=== PATIENT | female | born 1950 | race Caucasian/White ===

== ENCOUNTER 2018-07-16 10:04 | Inpatient (IN) | payer MEDICARE ==
[2018-07-16] MEDS ORDERED: FUROSEMIDE 10 MG/ML 4 ML VIAL IV STA (10:42)
--- NOTE | 2018-07-16 10:54 | ED ---
General Adult HPI - General Chief complaint: Shortness of Breath Stated complaint: SOB, leg swelling Time Seen by Provider: 07/16/18 10:31 Source: patient, RN notes reviewed Mode of arrival: wheelchair Limitations: no limitations - History of Present Illness Initial comments: Patient is a pleasant 67-year-old female presenting to the emergency Department with cough and leg swelling. Patient has had cough and cold symptoms for the past couple of weeks. Patient states it started with sinus problems then went to her chest. Patient did have yellow sputum however cough is now more dry with occasional clear sputum. Patient does have some mild discomfort in her chest and back that is described as an ache. The back discomfort is somewhat similar to her previous heart problems. Patient has noticed leg swelling over the past week. Patient denies any calf pain. No nausea vomiting. No diaphoresis. - Related Data Home Medications Medication Instructions Recorded Confirmed Cholecalciferol [Vitamin D3 (25 1,000 unit PO DAILY 07/16/18 07/16/18 Mcg = 1000 Iu)] Magnesium 200 mg PO DAILY 07/16/18 07/16/18 Allergies Allergy/AdvReac Type Severity Reaction Status Date / Time No Known Allergies Allergy Unverified 07/16/18 10:35 Review of Systems ROS Statement: Those systems with pertinent positive or pertinent negative responses have been documented in the HPI. ROS Other: All systems not noted in ROS Statement are negative. Constitutional: Denies: fever Eyes: Denies: eye pain ENT: Reports: congestion. Denies: ear pain Respiratory: Reports: cough, dyspnea Cardiovascular: Reports: as per HPI, chest pain, edema Endocrine: Denies: fatigue Gastrointestinal: Denies: abdominal pain Genitourinary: Denies: dysuria Musculoskeletal: Reports: as per HPI Skin: Denies: rash Neurological: Denies: weakness Past Medical History Past Medical History: Coronary Artery Disease (CAD), Hyperlipidemia, Myocardial Infarction ([place]) History of Any Multi-Drug Resistant Organisms: None Reported Past Surgical History: Cholecystectomy Additional Past Surgical History / Comment(s): cataracts Past Psychological History: No Psychological Hx Reported Smoking Status: Current every day smoker Past Alcohol Use History: None Reported Past Drug Use History: None Reported General Exam Limitations: no limitations General appearance: alert, in no apparent distress Head exam: Present: atraumatic Eye exam: Present: normal appearance, PERRL ENT exam: Present: normal oropharynx Neck exam: Present: normal inspection Respiratory exam: Present: normal lung sounds bilaterally. Absent: chest wall tenderness Cardiovascular Exam: Present: tachycardia Expanded Peripheral pulses: 2+: Radial (R), Radial (L), Dorsalis Pedis (R), Dorsalis Pedis (L) GI/Abdominal exam: Present: soft. Absent: distended, tenderness Extremities exam: Present: pedal edema (+3 bilateral). Absent: calf tenderness Back exam: Present: normal inspection Neurological exam: Present: alert Psychiatric exam: Present: normal affect, normal mood Skin exam: Present: normal color Course Vital Signs 07/16/18 07/16/18 07/16/18 10:07 11:15 11:17 Temperature 97.5 F L Pulse Rate 118 H 138 H Respiratory 20 18 16 Rate Blood Pressure 188/125 153/100 O2 Sat by Pulse 97 94 L Oximetry - Reevaluation(s) Reevaluation #1: 07/16/18 11:15 air sampling and monitoring shows atrial flutter with a rate of between 120 and 140. Patient is placed on child monitor secondary to chest pain and dyspnea and to monitor heart rate. 07/16/18 11:15 Cardizem drip will be started. EKG Findings - EKG Comments: EKG Findings:: Atrial flutter with a rate of 146. QRS 88. QT 318. QTC 495. Normal axis. Normal QRS. No acute ST change. Medical Decision Making - Medical Decision Making Patient reevaluated and updated. Case was also discussed with Dr. Wagner, who will admit covering for Dr. Haq. Cardiology will be placed on consult. - Lab Data Result diagrams: 07/16/18 10:57 07/16/18 10:57 Lab Results 07/16/18 07/16/18 07/16/18 Range/Units 10:57 10:57 10:57 WBC 13.5 H (3.8-10.6) k/uL RBC 5.83 H (3.80-5.40) m/uL Hgb 12.2 (11.4-16.0) gm/dL Hct 40.3 (34.0-46.0) % MCV 69.2 L (80.0-100.0) fL MCH 20.9 L (25.0-35.0) pg MCHC 30.1 L (31.0-37.0) g/dL RDW 20.4 H (11.5-15.5) % Plt Count 466 H (150-450) k/uL Hypochromasia Marked Poikilocytosis Slight Anisocytosis Moderate Microcytosis Marked PT 11.4 (9.0-12.0) sec INR 1.1 (<1.2) APTT 20.7 L (22.0-30.0) sec D-Dimer 0.94 H (<0.60) mg/L FEU Sodium 141 (137-145) mmol/L Potassium 4.4 (3.5-5.1) mmol/L Chloride 108 H (98-107) mmol/L Carbon Dioxide 24 (22-30) mmol/L Anion Gap 9 mmol/L BUN 25 H (7-17) mg/dL Creatinine 0.96 (0.52-1.04) mg/dL Est GFR (CKD-EPI)AfAm 70 (>60 ml/min/1.73 sqM) Est GFR (CKD-EPI)NonAf 61 (>60 ml/min/1.73 sqM) Glucose 122 H (74-99) mg/dL Calcium 9.2 (8.4-10.2) mg/dL Total Bilirubin 1.7 H (0.2-1.3) mg/dL AST 73 H (14-36) U/L ALT 180 H (9-52) U/L Alkaline Phosphatase 229 H (38-126) U/L Creatine Kinase 58 (30-135) U/L Troponin I (0.000-0.034) ng/mL NT-Pro-B Natriuret Pep pg/mL Total Protein 5.9 L (6.3-8.2) g/dL Albumin 3.4 L (3.5-5.0) g/dL 07/16/18 07/16/18 Range/Units 10:57 10:57 WBC (3.8-10.6) k/uL RBC (3.80-5.40) m/uL Hgb (11.4-16.0) gm/dL Hct (34.0-46.0) % MCV (80.0-100.0) fL MCH (25.0-35.0) pg MCHC (31.0-37.0) g/dL RDW (11.5-15.5) % Plt Count (150-450) k/uL Hypochromasia Poikilocytosis Anisocytosis Microcytosis PT (9.0-12.0) sec INR (<1.2) APTT (22.0-30.0) sec D-Dimer (<0.60) mg/L FEU Sodium (137-145) mmol/L Potassium (3.5-5.1) mmol/L Chloride (98-107) mmol/L Carbon Dioxide (22-30) mmol/L Anion Gap mmol/L BUN (7-17) mg/dL Creatinine (0.52-1.04) mg/dL Est GFR (CKD-EPI)AfAm (>60 ml/min/1.73 sqM) Est GFR (CKD-EPI)NonAf (>60 ml/min/1.73 sqM) Glucose (74-99) mg/dL Calcium (8.4-10.2) mg/dL Total Bilirubin (0.2-1.3) mg/dL AST (14-36) U/L ALT (9-52) U/L Alkaline Phosphatase (38-126) U/L Creatine Kinase (30-135) U/L Troponin I 0.053 H* (0.000-0.034) ng/mL NT-Pro-B Natriuret Pep 5690 pg/mL Total Protein (6.3-8.2) g/dL Albumin (3.5-5.0) g/dL - Radiology Data Radiology results: report reviewed (Computed tomography scan of the chest is negative for pulmonary embolism. There is small amount of groundglass opacity could represent alveolitis, CHF or atypical pneumonia. Bilateral effusions.), image reviewed (Chest x-ray shows increased interstitial markings concerning for congestive heart failure) Critical Care Time Critical Care Time: Yes Total Critical Care Time: 34 Disposition Clinical Impression: Atrial flutter with rapid ventricular response, Congestive heart failure Disposition: ADMITTED IP TO THIS HOSP Condition: Serious Is patient prescribed a controlled substance at d/c from ED?: No Referrals: Astrid Metz MD [Primary Care Provider] - 1-2 days Decision Time: 12:27
[2018-07-16 11:23] LABS: Albumin 3.4 g/dL (3.5-5.0); Calcium 9.2 mg/dL (8.4-10.2); Potassium 4.4 mmol/L (3.5-5.1); Total Bilirubin 1.7 mg/dL (0.2-1.3); Total Protein 5.9 g/dL (6.3-8.2)
[2018-07-16 11:34] LABS: INR 1.1 (<1.2)
[2018-07-16 11:35] LABS: Prothrombin Time 11.4 sec (9.0-12.0)
--- NOTE | 2018-07-16 11:35 | XR ---
EXAMINATION TYPE: XR chest 2V DATE OF EXAM: 07/16/2018 HISTORY: difficulty breathing. REFERENCE: NONE. FINDINGS: The heart is enlarged. There is vascular congestion with subtle interstitial change. I harrison ot exclude small, bilateral effusions. IMPRESSION: FINDINGS MOST CONSISTENT WITH CONGESTIVE HEART FAILURE.
[2018-07-16 11:44] LABS: Anisocytosis Moderate; HCT 40.3 % (34.0-46.0); HGB 12.2 gm/dL (11.4-16.0); Hypochromasia Marked; MCH 20.9 pg (25.0-35.0); MCHC 30.1 g/dL (31.0-37.0); MCV 69.2 fL (80.0-100.0); Mean Platelet Volume 7.4; Microcytosis Marked; Platelet Count 466 k/uL (150-450); Poikilocytosis Slight; RBC 5.83 m/uL (3.80-5.40); RDW 20.4 % (11.5-15.5)
[2018-07-16 11:47] LABS: D-Dimer 0.94 mg/L FEU (<0.60); Partial Thromboplastin Time 20.7 sec (22.0-30.0)
--- NOTE | 2018-07-16 12:21 | CT ---
EXAMINATION TYPE: CT angio chest DATE OF EXAM: 07/16/2018 12:11 PM COMPARISON: None. HISTORY: Trouble breathing CT DLP: 474 mGycm Automated exposure control for dose reduction was used. CONTRAST: CTA scan of the thorax is performed with IV Contrast, patient injected with 100 mL of Isovue 370, pul monary embolism protocol. . FINDINGS: There are bilateral effusions, greater on the right than the left. There is some associated atelectasis. There is a small amount of groundglass opacity in the right middle lobe. This may repre sent ongoing alveolitis, congestive heart failure or atypical pneumonia. The heart is enlarged. There is no pericardial fluid. The aorta is nonenlarged. There is no evidence of pulmonary embolus. There are scattered lymph nodes in the aortopulmonary window, left hilum and mediastinum. The largest of these measures 14 mm. There is hypertrophic spondylosis within the spine. Visualized portions of the upper abdomen are unremarkable. IMPRESSION: 1. THIS EXAMINATION IS NEGATIVE FOR PULMONARY EMBOLUS. 2. BILATERAL PLEURAL EFFUSIONS, GREATER ON THE RIGHT THAN THE LEFT. 3. MINIMAL GROUNDGLASS OPACITY IN THE RIGHT MIDDLE LOBE. THE DIFFERENTIAL IS GIVEN ABOVE. 4. NONSPECIFIC MEDIASTINAL ADENOPATHY. 5. DEGENERATIVE CHANGES WITHIN THE SPINE.
[2018-07-16] MEDS ORDERED: ASPIRIN 325 MG TAB PO STA (12:28)
[2018-07-16] MEDS ORDERED: HEPARIN SODIUM,PORCINE 5,000 UNIT/ML 1 ML VIAL IV ONE (12:29)
[2018-07-16] MEDS: DILTIAZEM 125 MG in SODIUM CHLORIDE 0.9% 100 ML IV SCH (12:31)
[2018-07-16 12:44] LABS: Lymphocytes # (M) 2.14 k/uL (1.0-4.8); Monocytes # (M) 1.74 k/uL (0-1.0); Neutrophils # (M) 9.65 k/uL (1.3-7.7); Neutrophils % (M) 72 %; Nucleated Red Blood Cells 1 /100 WBC (0-0); Total Cells Counted 200; WBC 13.4 k/uL (3.8-10.6)
[2018-07-16 12:45] LABS: Polychromasia Present; Target Cells Present
[2018-07-16] MEDS: FUROSEMIDE 10 MG/ML 4 ML VIAL IV SCH ×2 (12:53→19:51)
[2018-07-16] MEDS: HEPARIN SOD,PORK IN 0.45% NACL 25,000 UNIT in 0.45% NACL 1 250ML.BAG IV SCH (13:06)
--- NOTE | 2018-07-16 14:53 | P.HPIM ---
History of Present Illness H&P Date: 07/16/18 Pinky Chandler is a 67-year-old female who presented to [facility] emergency room with a chief complaints of cough lower extremity swelling and worsening shortness of breath, she was evaluated in emergency room and was found to have atrial fibrillation with rapid ventricular response she was started on IV heparin and IV Cardizem drip and was admitted to telemetry floor, cardiology consultation was requested, also her presentation was compatible was acute congestive heart failure exacerbation with pulmonary venous congestion and small bilateral pleural effusions. D-dimer was elevated in the emergency room, computed tomography scan angiogram of the chest was done and was negative for pulmonary embolism, however it revealed evidence of groundglass opacity in the right middle lobe, and nonspecific mediastinal adenopathy pulmonary consultation was requested. Patient states that she has known history of coronary artery disease she had a myocardial infarction in 2009 at that time she underwent angioplasty was to stent placement she was taking medications regularly until 4-1/2 years ago when she decided not to take any medications any more, she has been smoking but she stated that she has been decreasing the amount of cigarettes she is smoking. Past Medical History Past Medical History: Coronary Artery Disease (CAD), Hyperlipidemia, Myocardial Infarction ([place]) History of Any Multi-Drug Resistant Organisms: None Reported Past Surgical History: Cholecystectomy Additional Past Surgical History / Comment(s): cataracts Past Psychological History: No Psychological Hx Reported Smoking Status: Current every day smoker Past Alcohol Use History: None Reported Past Drug Use History: None Reported Medications and Allergies Home Medications Medication Instructions Recorded Confirmed Type Cholecalciferol [Vitamin D3 (25 1,000 unit PO DAILY 07/16/18 07/16/18 History Mcg = 1000 Iu)] Magnesium 200 mg PO DAILY 07/16/18 07/16/18 History Allergies Allergy/AdvReac Type Severity Reaction Status Date / Time No Known Allergies Allergy Unverified 07/16/18 10:35 Physical Exam Vitals: Vital Signs Temp Pulse Pulse Resp BP BP Pulse Ox 07/16/18 13:30 97.9 F 136 H 18 159/101 95 07/16/18 11:17 138 H 16 153/100 94 L 07/16/18 11:15 18 07/16/18 10:07 97.5 F L 118 H 20 188/125 97 Intake and Output 07/15/18 07/16/18 07/16/18 22:59 06:59 14:59 Other: Weight 99.79 kg In general patient is alert and oriented 3 in no apparent distress HEENT head normocephalic and atraumatic Neck is supple no JVD no goiter no lymphadenopathy Chest exam reveals a scattered crackles in both lung rocha no wheezing Cardiac exam reveals irregular heart sounds S1 and S2 no gallops no murmurs Abdomen is soft nontender no organomegaly with normal bowel sounds Extremity exam reveals mild edema bilaterally no cyanosis or clubbing Neurological examination reveals no gross focal deficit Results CBC & Chem 7: 07/16/18 10:57 07/16/18 10:57 Labs: Abnormal Lab Results - Last 24 Hours (Table) 07/16/18 07/16/18 07/16/18 Range/Units 10:57 10:57 10:57 WBC 13.4 H (3.8-10.6) k/uL RBC 5.83 H (3.80-5.40) m/uL MCV 69.2 L (80.0-100.0) fL MCH 20.9 L (25.0-35.0) pg MCHC 30.1 L (31.0-37.0) g/dL RDW 20.4 H (11.5-15.5) % Plt Count 466 H (150-450) k/uL Neutrophils # (Manual) 9.65 H (1.3-7.7) k/uL Monocytes # (Manual) 1.74 H (0-1.0) k/uL Nucleated RBCs 1 H (0-0) /100 WBC APTT 20.7 L (22.0-30.0) sec D-Dimer 0.94 H (<0.60) mg/L FEU Chloride 108 H (98-107) mmol/L BUN 25 H (7-17) mg/dL Glucose 122 H (74-99) mg/dL Total Bilirubin 1.7 H (0.2-1.3) mg/dL AST 73 H (14-36) U/L ALT 180 H (9-52) U/L Alkaline Phosphatase 229 H (38-126) U/L Troponin I (0.000-0.034) ng/mL Total Protein 5.9 L (6.3-8.2) g/dL Albumin 3.4 L (3.5-5.0) g/dL 07/16/18 Range/Units 10:57 WBC (3.8-10.6) k/uL RBC (3.80-5.40) m/uL MCV (80.0-100.0) fL MCH (25.0-35.0) pg MCHC (31.0-37.0) g/dL RDW (11.5-15.5) % Plt Count (150-450) k/uL Neutrophils # (Manual) (1.3-7.7) k/uL Monocytes # (Manual) (0-1.0) k/uL Nucleated RBCs (0-0) /100 WBC APTT (22.0-30.0) sec D-Dimer (<0.60) mg/L FEU Chloride (98-107) mmol/L BUN (7-17) mg/dL Glucose (74-99) mg/dL Total Bilirubin (0.2-1.3) mg/dL AST (14-36) U/L ALT (9-52) U/L Alkaline Phosphatase (38-126) U/L Troponin I 0.053 H* (0.000-0.034) ng/mL Total Protein (6.3-8.2) g/dL Albumin (3.5-5.0) g/dL Assessment and Plan Plan: #1 acute congestive heart failure exacerbation #2 atrial fibrillation with rapid ventricular response #3 ground glass opacity in the right middle lobe was nonspecific mediastinal adenopathy #4 small bilateral pleural effusion #5 tobacco abuse patient counseled in length to quit during this admission #6 elevated d-dimer was negative CT scan angiogram of the chest for pulmonary embolism #7 leukocytosis white blood count 13.4 patient is not febrile no clear evidence of pneumonia on chest x-ray will check urine analysis to rule out any infectious process continue to monitor white blood count #8 mild elevation in troponin level will monitor #9 elevated liver enzymes including AST a LT alkaline phosphatase and elevated total bilirubin at 1.7 will check liver ultrasound #10 previous history of coronary artery disease, hyperlipidemia, myocardial infarction in 2009 patient had 2 stent placement at that time. She states that she was taking medication until about 4/2 years ago and then she decided not to take any more medications she was counseled in length in that regard.
--- NOTE | 2018-07-16 15:31 | US ---
EXAMINATION TYPE: US liver DATE OF EXAM: 07/16/2018 COMPARISON: CTA chest earlier today. CLINICAL HISTORY: Elevated liver enzymes. EXAM MEASUREMENTS: Liver Length: 16.9 cm Gallbladder Wall: Surgically absent CBD: 0.6 cm Right Kidney: 11.4 x 4.3 x 4.8 cm Pancreas: Obscured by bowel gas Liver: Heterogeneous. Measuring upper limits of normal Gallbladder: Surgically absent Evidence for sonographic Casanova's sign: No CBD: wnl Right Kidney: No hydronephrosis or masses seen Exam noted suboptimal due to patient's large body habitus. Pancreas is suboptimally seen on images sa yissel but appeared within normal limits on recent CT. Visualized liver is heterogeneous without intrahe patic ductal dilatation. Evaluation for focal masses is suboptimal due to the heterogeneity. Gallblad celestina is surgically absent. Limited images of right kidney show no gross hydronephrosis. IMPRESSION: Suboptimal study, heterogeneous hyperechoic appearance of liver could reflect product of diffuse fatty infiltration or underlying hepatocellular disease.
[2018-07-16] MEDS: NITROGLYCERIN OINT 1 INCH/GM PACKET TOPICAL SCH ×2 (15:38→18:22)
[2018-07-16 16:18] VITALS: BMI 35.5
[2018-07-16] MEDS: HEPARIN SODIUM,PORCINE 5,000 UNIT/ML 1 ML VIAL IV PRN (19:52)
[2018-07-17] MEDS: NITROGLYCERIN OINT 1 INCH/GM PACKET TOPICAL SCH ×5 (00:25→21:25)
[2018-07-17] MEDS: DILTIAZEM 125 MG in SODIUM CHLORIDE 0.9% 100 ML IV SCH (00:26)
[2018-07-17] MEDS: FUROSEMIDE 10 MG/ML 4 ML VIAL IV SCH ×3 (06:38→19:42)
[2018-07-17 07:29] LABS: Anisocytosis Moderate; Basophils % (A) 0 %; Eosinophils # (A) 0.1 k/uL (0-0.7); Eosinophils % (A) 1 %; HCT 45.9 % (34.0-46.0); HGB 13.3 gm/dL (11.4-16.0); Hypochromasia Marked; Lymphocytes # (A) 2.2 k/uL (1.0-4.8); Lymphocytes % (A) 19 %; MCH 20.3 pg (25.0-35.0); MCHC 28.9 g/dL (31.0-37.0); MCV 70.2 fL (80.0-100.0); Mean Platelet Volume 6.6; Microcytosis Marked; Monocytes # (A) 1.1 k/uL (0-1.0); Monocytes % (A) 9 %; Neutrophils % (A) 69 %; Platelet Count 461 k/uL (150-450); Poikilocytosis Slight; RBC 6.54 m/uL (3.80-5.40); RDW 20.5 % (11.5-15.5); WBC 11.6 k/uL (3.8-10.6)
[2018-07-17 07:43] LABS: INR 1.1 (<1.2); Partial Thromboplastin Time 38.5 sec (22.0-30.0); Prothrombin Time 11.3 sec (9.0-12.0)
[2018-07-17] MEDS: ASPIRIN 325 MG TAB PO SCH (08:31)
[2018-07-17] MEDS: HEPARIN SODIUM,PORCINE 5,000 UNIT/ML 1 ML VIAL IV PRN (08:32)
[2018-07-17] MEDS: HEPARIN SOD,PORK IN 0.45% NACL 25,000 UNIT in 0.45% NACL 1 250ML.BAG IV SCH (08:42)
[2018-07-17] MEDS ORDERED: DEXTROSE 5% IN WATER 100 ML with AMIODARONE 150 MG IV ONE (10:00)
[2018-07-17] MEDS ORDERED: AMIODARONE 360 MG in DEXTROSE 5% IN WATER 200 ML IV ONE ×2 (10:10)
[2018-07-17] MEDS: SPIRONOLACTONE 25 MG TAB PO SCH (10:33)
[2018-07-17] MEDS: SACUBITRIL/VALSARTAN 24 MG-26 MG TABLET PO SCH ×2 (10:34→19:41)
[2018-07-17] MEDS: APIXABAN 5 MG TAB PO SCH ×2 (10:34→19:41)
--- NOTE | 2018-07-17 12:06 | P.CNPUL ---
History of Present Illness Consult date: 07/17/18 Requesting physician: Marilee Wagner Reason for consult: dyspnea, abnormal CXR/CT Chief complaint: Dyspnea, lower extremity edema History of present illness: This is a 67-year-old with female patient, past medical history of coronary artery disease with previous stenting, myocardial infarction, hypertension, hyperlipidemia, current every day smoker, who presented to the hospital on 2018 for evaluation of dyspnea, cough, and increased extremity swelling. Patient had been having symptoms of upper respiratory infection, with sinus problems, cough and some yellow sputum production. Denied any fever or chills, has some mild discomfort in her chest and her back she described as an ache. Th e symptoms were similar to previous episode of myocardial infarction. Her swelling has in the bilateral lower extremities over the past week. Denied any calf pain, no nausea, vomiting or diarrhea, no diaphoresis. No fever or chills. Patient has no history of chronic lung problems, no COPD, no asthma, he is not on any inhalers or oxygen at home. She states she has not seen a physician in the last 4 years, after her , not even her heart doctor for follow-up. On arrival patient was placed on a plumbers and [employer] help[employer] which showed atrial flutter with a rate between 120 and 140, she was started on Cardizem drip, we were no acute ST changes. Chest x-ray showed increased interstitial markings concerning for congestive heart failure, lab work showed a mild leukocytosis, with white blood cell count of 13.4, hemoglobin of 12.2, d-dimer was mildly elevated at 0.94, troponins were elevated at 0.053, 0.053 and 0.056, her BNP was 5690. Electrolytes and renal profile were unremarkable. CT angios chest was negative for pulmonary embolus, it showed bilateral pleural effusions greater on the right than the left, and groundglass opacity in the right middle lobe was nonspecific mediastinal adenopathy. Patient was started on IV diuretics, 40 mg of Lasix every 8 hours, she is diuresing, breathing easier and lower extremity edema is improving. Review of Systems All systems: negative Constitutional: Denies chills, Denies fever Eyes: denies blurred vision, denies pain Ears, nose, mouth and throat: Denies headache, Denies sore throat Cardiovascular: Reports chest pain, Reports edema, Reports leg edema, Denies shortness of breath Respiratory: Reports dyspnea, Denies cough Gastrointestinal: Denies abdominal pain, Denies diarrhea, Denies nausea, Denies vomiting Genitourinary: Denies dysuria, Denies hematuria Musculoskeletal: Denies myalgias Integumentary: Denies pruritus, Denies rash Neurological: Denies numbness, Denies weakness Psychiatric: Denies anxiety, Denies depression Endocrine: Denies fatigue, Denies weight change Past Medical History Past Medical History: Coronary Artery Disease (CAD), Hyperlipidemia, Myocardial Infarction ([place]) Last Myocardial Infarction Date:: 2009 History of Any Multi-Drug Resistant Organisms: None Reported Past Surgical History: Cholecystectomy Additional Past Surgical History / Comment(s): cataracts Past Psychological History: No Psychological Hx Reported Smoking Status: Current every day smoker Past Alcohol Use History: None Reported Past Drug Use History: None Reported - Past Family History Mother Additional Family Medical History / Comment(s): parkinsons Father Family Medical History: Dementia, GERD/Reflux Medications and Allergies Home Medications Medication Instructions Recorded Confirmed Type Cholecalciferol [Vitamin D3 (25 1,000 unit PO DAILY 07/16/18 07/16/18 History Mcg = 1000 Iu)] Magnesium 200 mg PO DAILY 07/16/18 07/16/18 History Allergies Allergy/AdvReac Type Severity Reaction Status Date / Time No Known Allergies Allergy Unverified 07/16/18 10:35 Physical Exam Vitals: Vital Signs Temp Pulse Resp BP Pulse Ox 07/17/18 08:00 98.3 F 87 16 124/69 92 L 07/17/18 05:00 16 07/17/18 04:00 97.6 F 92 16 136/80 93 L 07/17/18 00:00 97.5 F L 80 18 135/87 92 L 07/16/18 19:45 98.3 F 101 H 18 146/87 92 L 07/16/18 16:15 96.5 F L 137 H 18 163/111 94 L 07/16/18 13:30 97.9 F 136 H 18 159/101 95 Intake and Output 07/16/18 07/17/18 07/17/18 22:59 06:59 14:59 Intake Total 66.36 119.167 168.091 Balance 66.36 119.167 168.091 Intake: Intake, IV Titration 66.36 119.167 168.091 Amount Diltiazem 125 mg In 119.167 Sodium Chloride 0.9% 100 ml @ 10 MG/HR 10 mls/hr IV .[id number] DANIEL Rx#: [id number] Heparin Sod,Pork in 0.45% 66.36 168.091 NaCl 25,000 unit In 0.45 % NaCl 1 250ml.bag @ 10 UNITS/KG/HR 9.979 mls/hr IV .Q24H DANIEL Rx#: [id number] Other: # Voids 1 1 Weight 99.79 kg 100.7 kg GENERAL EXAM: Alert, active, comfortable in no apparent distress. HEAD: Normocephalic/atraumatic. EYES: Normal reaction of pupils, equal size. Conjunctiva pink, sclera white. NOSE: Clear with pink turbinates. THROAT: No erythema or exudates. NECK: No masses, no JVD, no thyroid enlargement, no adenopathy. CHEST: No chest wall deformity. Symmetrical expansion. LUNGS: Equal air entry with basilar rales CVS: Regular rate and rhythm, normal S1 and S2, no gallops, no murmurs, no rubs ABDOMEN: Soft, nontender. No hepatosplenomegaly, normal bowel sounds, no guarding or rigidity. EXTREMITIES: No clubbing, no edema, no cyanosis, 2+ pulses and upper and lower extremities. MUSCULOSKELETAL: Muscle strength and tone normal. SPINE: No scoliosis or deformity SKIN: No rashes CENTRAL NERVOUS SYSTEM: Alert and oriented -3. No focal deficits, tone is normal in all 4 extremities. PSYCHIATRIC: Alert and oriented -3. Appropriate affect. Intact judgment and insight. Results - Laboratory Findings CBC and BMP: 07/17/18 06:53 07/16/18 10:57 PT/INR, D-dimer PT 11.3 sec (9.0-12.0) 07/17/18 06:53 INR 1.1 (<1.2) 07/17/18 06:53 D-Dimer 0.94 mg/L FEU (<0.60) H 07/16/18 10:57 Abnormal lab findings: Abnormal Labs 07/16/18 07/16/18 07/16/18 10:57 10:57 10:57 WBC 13.4 H RBC 5.83 H MCV 69.2 L MCH 20.9 L MCHC 30.1 L RDW 20.4 H Plt Count 466 H Neutrophils # Neutrophils # (Manual) 9.65 H Monocytes # Monocytes # (Manual) 1.74 H Nucleated RBCs 1 H APTT 20.7 L D-Dimer 0.94 H Chloride 108 H BUN 25 H Glucose 122 H Total Bilirubin 1.7 H AST 73 H ALT 180 H Alkaline Phosphatase 229 H Troponin I Total Protein 5.9 L Albumin 3.4 L 07/16/18 07/16/18 07/17/18 10:57 18:30 01:05 WBC RBC MCV MCH MCHC RDW Plt Count Neutrophils # Neutrophils # (Manual) Monocytes # Monocytes # (Manual) Nucleated RBCs APTT D-Dimer Chloride BUN Glucose Total Bilirubin AST ALT Alkaline Phosphatase Troponin I 0.053 H* 0.053 H* 0.056 H* Total Protein Albumin 07/17/18 07/17/18 07/17/18 01:05 06:53 06:53 WBC 11.6 H RBC 6.54 H MCV 70.2 L MCH 20.3 L MCHC 28.9 L RDW 20.5 H Plt Count 461 H Neutrophils # 8.0 H Neutrophils # (Manual) Monocytes # 1.1 H Monocytes # (Manual) Nucleated RBCs APTT 50.9 H 38.5 H D-Dimer Chloride BUN Glucose Total Bilirubin AST ALT Alkaline Phosphatase Troponin I Total Protein Albumin - Diagnostic Findings Chest x-ray: report reviewed, image reviewed CT scan - chest: report reviewed, image reviewed Assessment and Plan Plan: Assessment: #1. Acute exacerbation of congestive heart failure with an unknown ejection fraction #2. Elevated troponins, rule out non-ST elevated [place] #3. A flutter with rapid ventricular response #4. History of coronary artery disease with previous stenting #5. Hypertension #6. Hyperlipidemia #7. Previous myocardial infarction #8. Chronic and ongoing nicotine dependence Plan: We'll continue with IV diuretics, will add nebulized bronchodilators, continue with oral anticoagulation, heart rate is better controlled, hemodynamically stable, no complaints of chest pain today. No fever or chills. Monitor electrolytes and renal profile, and TM to follow and make further recommendations I performed a history & physical examination of the patient and discussed their management with my nurse practitioner, Amanda Guzman. I reviewed the nurse practitioner's note and agree with the documented findings and plan of care. Lung sounds are positive for basilar rales. The findings and the impression was discussed with the patient. I attest to the documentation by the nurse practitioner. Time with Patient: Greater than 30
--- NOTE | 2018-07-17 12:10 | P.PN ---
Subjective Progress Note Date: 07/17/18 Pinky Chandler is a 67-year-old female who presented to [facility] emergency room with a chief complaints of cough lower extremity swelling and worsening shortness of breath, she was evaluated in emergency room and was found to have atrial fibrillation with rapid ventricular response she was started on IV heparin and IV Cardizem drip and was admitted to telemetry floor, cardiology consultation was requested, also her presentation was compatible was acute congestive heart failure exacerbation with pulmonary venous congestion and small bilateral pleural effusions. D-dimer was elevated in the emergency room, computed tomography scan angiogram of the chest was done and was negative for pulmonary embolism, however it revealed evidence of groundglass opacity in the right middle lobe, and nonspecific mediastinal adenopathy pulmonary consultation was requested. Patient states that she has known history of coronary artery disease she had a myocardial infarction in 2009 at that time she underwent angioplasty was to stent placement she was taking medications regularly until 4-1/2 years ago when she decided not to take any medications any more, she has been smoking but she stated that she has been decreasing the amount of cigarettes she is smoking. On 07/17/2018 patient was seen and examined on the telemetry floor she is alert and oriented 3 she was evaluated by cardiology and her cardiac medication were adjusted, currently she is on amiodarone drip, Cardizem drip was discontinued, she was also started on Enyresto, Eliquis, and Aldactone. Clinically she is doing better she is alert and oriented 3 shortness of breath has improved she denies any chest pain no fever or chills no headache or dizziness no cough no nausea or vomiting no abdominal pain no diarrhea and no urinary symptoms. Objective - Vital Signs Vital signs: Vital Signs Temp 98.3 F 07/17/18 08:00 Pulse 87 07/17/18 08:00 Resp 16 07/17/18 08:00 BP 124/69 07/17/18 08:00 Pulse Ox 92 L 07/17/18 08:00 Intake & Output 07/16/18 07/17/18 07/17/18 18:59 06:59 18:59 Intake Total 185.527 168.091 Balance 185.527 168.091 Weight 99.79 kg 100.7 kg Intake: Intake, IV Titration 185.527 168.091 Amount Diltiazem 125 mg In 119.167 Sodium Chloride 0.9% 100 ml @ 10 MG/HR 10 mls/hr IV .[id number] D[facility]EL Rx#: [id number] Heparin Sod,Pork in 0.45% 66.36 168.091 NaCl 25,000 unit In 0.45 % NaCl 1 250ml.bag @ 10 UNITS/KG/HR 9.979 mls/hr IV .Q24H [facility] Rx#: [id number] Other: # Voids 2 1 - Exam In general patient is alert and oriented 3 in no apparent distress HEENT head normocephalic and atraumatic Neck is supple no JVD no goiter no lymphadenopathy Chest exam reveals a scattered crackles in both lung rocha no wheezing Cardiac exam reveals irregular heart sounds S1 and S2 no gallops no murmurs Abdomen is soft nontender no organomegaly with normal bowel sounds Extremity exam reveals mild edema bilaterally no cyanosis or clubbing Neurological examination reveals no gross focal deficit - Labs CBC & Chem 7: 07/17/18 06:53 07/16/18 10:57 Labs: Abnormal Lab Results - Last 24 Hours (Table) 07/16/18 07/16/18 07/17/18 Range/Units 10:57 18:30 01:05 WBC 13.4 H (3.8-10.6) k/uL RBC (3.80-5.40) m/uL MCV (80.0-100.0) fL MCH (25.0-35.0) pg MCHC (31.0-37.0) g/dL RDW (11.5-15.5) % Plt Count (150-450) k/uL Neutrophils # (1.3-7.7) k/uL Neutrophils # (Manual) 9.65 H (1.3-7.7) k/uL Monocytes # (0-1.0) k/uL Monocytes # (Manual) 1.74 H (0-1.0) k/uL Nucleated RBCs 1 H (0-0) /100 WBC APTT (22.0-30.0) sec Troponin I 0.053 H* 0.056 H* (0.000-0.034) ng/mL 07/17/18 07/17/18 07/17/18 Range/Units 01:05 06:53 06:53 WBC 11.6 H (3.8-10.6) k/uL RBC 6.54 H (3.80-5.40) m/uL MCV 70.2 L (80.0-100.0) fL MCH 20.3 L (25.0-35.0) pg MCHC 28.9 L (31.0-37.0) g/dL RDW 20.5 H (11.5-15.5) % Plt Count 461 H (150-450) k/uL Neutrophils # 8.0 H (1.3-7.7) k/uL Neutrophils # (Manual) (1.3-7.7) k/uL Monocytes # 1.1 H (0-1.0) k/uL Monocytes # (Manual) (0-1.0) k/uL Nucleated RBCs (0-0) /100 WBC APTT 50.9 H 38.5 H (22.0-30.0) sec Troponin I (0.000-0.034) ng/mL Assessment and Plan Plan: #1 acute congestive heart failure exacerbation, today patient was evaluated by cardiology she was started on Entresto, amiodarone drip, Eliquis and Aldactone #2 atrial fibrillation with rapid ventricular response, started on amiodarone drip, off Cardizem drip at this time #3 ground glass opacity in the right middle lobe was nonspecific mediastinal adenopathy, pulmonary consultation was requested #4 small bilateral pleural effusion #5 tobacco abuse patient counseled in length to quit during this admission #6 elevated d-dimer was negative CT scan angiogram of the chest for pulmonary embolism #7 leukocytosis white blood count 13.4 patient is not febrile no clear evidence of pneumonia on chest x-ray will check urine analysis to rule out any infectious process continue to monitor white blood count #8 mild elevation in troponin level will monitor #9 elevated liver enzymes including AST a LT alkaline phosphatase and elevated total bilirubin at 1.7 will check liver ultrasound #10 previous history of coronary artery disease, hyperlipidemia, myocardial infarction in 2009 patient had 2 stent placement at that time. She states that she was taking medication until about 4/2 years ago and then she decided not to take any more medications she was counseled in length in that regard.
[2018-07-17] MEDS: IPRATROPIUM-ALBUTEROL 3 ML NEB INHALATION SCH ×3 (14:06→21:03)
[2018-07-17] MEDS: AMIODARONE 300 MG in DEXTROSE 5% IN WATER 250 ML IV SCH ×2 (18:31)
--- NOTE | 2018-07-17 19:42 | CONS ---
CONSULTATION Mrs. Chandler is a 67-year-old female who is seen for cardiac evaluation. The patient's emergency medical records reviewed. This patient has a known history of coronary artery disease and with a prior history of myocardial infarction and stent placement probably in 2009. The patient has not been following any doctor for several years and she has not been taking any medications. The patient gives a history that she has been having some cough with yellowish sputum and difficulty in breathing. She has a history suggestive of orthopnea and PND, as well as leg swelling. Patient denies any chest pain. The patient can walk only short distances. HOME MEDICATIONS: Include vitamin D3 and Magnesium. PAST MEDICAL HISTORY: Includes history of prior myocardial infarction with stent placement, cholecystectomy. SOCIAL HISTORY: Patient currently is an everyday smoker. The patient does not drink alcohol. PHYSICAL EXAMINATION: Physical examination is at present reveals a 67-year-old female who is sitting comfortably in the chair without any respiratory distress. The patient's blood pressure in the emergency room was elevated to 188/125. Blood pressure now is 150/100 mmHg, heart rate is 120 per minute. HEENT examination is negative. NECK is supple. There is increase in jugular venous pressure. Both the carotid pulses are felt. There is no bruit. Chest is symmetrical. Heart the PMI is not felt. First and second heart sounds are heard. Jugular venous pressure is difficult to assess. Lungs reveal bilateral scattered wheezes and bilateral basilar rales. Abdomen is soft. Extremities: There is 2+ pedal edema. EKG shows evidence of atrial fibrillation and flutter, with recurrent left ventricular response. Chest x-ray is suggestive of congestive cardiac failure. Chest CTA did not show any pulmonary embolism. The patient's hemoglobin is 13.3, PTT is 38.5. Electrolytes are normal. Creatinine is 0.96. Three sets of troponins are 0.053, 0.053 and 0.056. The patient's proBNP level is 5690. FINAL IMPRESSION: 1. This patient is admitted with acute congestive cardiac failure. 2. The patient is in atrial flutter fibrillation with a moderately rapid ventricular response. 3. Prior history of myocardial infarction with stent placement. The patient's echocardiogram reveals severely impaired left ventricular systolic function with ejection fraction of 25-30 percent. RECOMMENDATIONS: We will continue the patient on IV Lasix. The Cardizem will be discontinued. We will start the patient on amiodarone. Heparin is discontinued. We will start the patient on Eliquis 5 mg b.i.d. and the patient will be also started on Entresto 24/26 mg b.i.d. as the blood pressure permits, we will beta blockers tomorrow. The patient is educated regarding taking medications. After the patient's condition improves, she may need a repeat catheterization to rule out any significant progression in the pulmonary artery disease as there is significant impairment in the patient's left ventricular systolic function. Thank you for this consultation. MMALBINL / IJN: [id number] /
[2018-07-17] MEDS: BUDESONIDE 1 MG/2 ML NEBU INHALATION SCH (21:03)
[2018-07-18] MEDS: AMIODARONE 300 MG in DEXTROSE 5% IN WATER 250 ML IV SCH ×2 (02:26)
[2018-07-18] MEDS: FUROSEMIDE 10 MG/ML 4 ML VIAL IV SCH ×2 (04:49→11:50)
[2018-07-18 06:44] LABS: Anisocytosis Moderate; Basophils % (A) 0 %; Eosinophils # (A) 0.1 k/uL (0-0.7); Eosinophils % (A) 1 %; HCT 44.3 % (34.0-46.0); HGB 12.8 gm/dL (11.4-16.0); Hypochromasia Marked; Lymphocytes # (A) 1.9 k/uL (1.0-4.8); Lymphocytes % (A) 19 %; MCH 20.1 pg (25.0-35.0); MCHC 28.8 g/dL (31.0-37.0); MCV 69.7 fL (80.0-100.0); Mean Platelet Volume 6.1; Microcytosis Marked; Monocytes # (A) 0.9 k/uL (0-1.0); Monocytes % (A) 10 %; Neutrophils # (A) 6.7 k/uL (1.3-7.7); Neutrophils % (A) 68 %; Platelet Count 451 k/uL (150-450); Poikilocytosis Slight; RBC 6.35 m/uL (3.80-5.40); RDW 20.1 % (11.5-15.5); WBC 9.8 k/uL (3.8-10.6)
[2018-07-18 06:57] LABS: Albumin 3.7 g/dL (3.5-5.0); INR 1.1 (<1.2); Potassium 4.2 mmol/L (3.5-5.1); Prothrombin Time 11.3 sec (9.0-12.0); Total Bilirubin 1.3 mg/dL (0.2-1.3); Total Protein 6.3 g/dL (6.3-8.2)
[2018-07-18] MEDS: BUDESONIDE 1 MG/2 ML NEBU INHALATION SCH (08:51)
[2018-07-18] MEDS: IPRATROPIUM-ALBUTEROL 3 ML NEB INHALATION SCH ×3 (08:51→15:31)
[2018-07-18 08:58] LABS: Glucose,Whole Blood 120 mg/dL (75-99)
--- NOTE | 2018-07-18 09:34 | CT ---
EXAMINATION TYPE: CT brain wo con DATE OF EXAM: 07/18/2018 COMPARISON: None HISTORY: New onset of slurred speech CT DLP: 2342 mGycm Automated exposure control for dose reduction was used. FINDINGS: [id number]-[id number] generalized degenerative change. Nonspecific low-attenuation the white matter most l ikely related to remote microvascular ischemia. No midline shift or mass effect. Changes of chronic s inusitis noted. Calvarium intact. Tiny hypodensities within the basal ganglia bilaterally may represe nt remote lacunar infarctions rather than Virchow-Dexter spaces. Correlate clinically. No acute hemorrhage. IMPRESSION: DEGENERATIVE AND NONSPECIFIC WHITE MATTER CHANGES. IF THERE IS CONCERN FOR ACUTE ISCHEMIA CORRELATE W ITH MRI CLINICALLY WARRANTED.
[2018-07-18 09:45] LABS: Iron Saturation 16.86 (12.00-45.00)
[2018-07-18] MEDS: NITROGLYCERIN OINT 1 INCH/GM PACKET TOPICAL SCH ×3 (10:01→15:14)
[2018-07-18] MEDS: SACUBITRIL/VALSARTAN 24 MG-26 MG TABLET PO SCH (10:04)
[2018-07-18] MEDS: APIXABAN 5 MG TAB PO SCH (10:04)
[2018-07-18] MEDS: ASPIRIN 325 MG TAB PO SCH (10:04)
[2018-07-18] MEDS: SPIRONOLACTONE 25 MG TAB PO SCH (10:04)
[2018-07-18 10:19] LABS: Anisocytosis Moderate; Basophils % (A) 0 %; Eosinophils # (A) 0.2 k/uL (0-0.7); Eosinophils % (A) 1 %; HCT 43.7 % (34.0-46.0); HGB 12.8 gm/dL (11.4-16.0); Hypochromasia Marked; Lymphocytes # (A) 1.8 k/uL (1.0-4.8); Lymphocytes % (A) 15 %; MCH 20.4 pg (25.0-35.0); MCHC 29.3 g/dL (31.0-37.0); MCV 69.7 fL (80.0-100.0); Mean Platelet Volume 7.1; Microcytosis Marked; Monocytes # (A) 1.2 k/uL (0-1.0); Monocytes % (A) 10 %; Neutrophils # (A) 8.9 k/uL (1.3-7.7); Neutrophils % (A) 73 %; Platelet Count 480 k/uL (150-450); Poikilocytosis Slight; RBC 6.27 m/uL (3.80-5.40); RDW 20.7 % (11.5-15.5); WBC 12.2 k/uL (3.8-10.6)
[2018-07-18 10:35] LABS: Albumin 3.7 g/dL (3.5-5.0); Calcium 9.4 mg/dL (8.4-10.2); Potassium 3.4 mmol/L (3.5-5.1); Total Bilirubin 1.2 mg/dL (0.2-1.3); Total Protein 6.2 g/dL (6.3-8.2)
[2018-07-18 10:45] LABS: Prothrombin Time 10.9 sec (9.0-12.0)
[2018-07-18] MEDS ORDERED: ACETAMINOPHEN TAB 325 MG TAB PO PRN (10:59)
[2018-07-18] MEDS ORDERED: ONDANSETRON 4 MG/2 ML VIAL IVP PRN (10:59)
--- NOTE | 2018-07-18 11:00 | P.PN ---
Subjective Progress Note Date: 07/18/18 Pinky Chandler is a 67-year-old female who presented to [facility] emergency room with a chief complaints of cough lower extremity swelling and worsening shortness of breath, she was evaluated in emergency room and was found to have atrial fibrillation with rapid ventricular response she was started on IV heparin and IV Cardizem drip and was admitted to telemetry floor, cardiology consultation was requested, also her presentation was compatible was acute congestive heart failure exacerbation with pulmonary venous congestion and small bilateral pleural effusions. D-dimer was elevated in the emergency room, computed tomography scan angiogram of the chest was done and was negative for pulmonary embolism, however it revealed evidence of groundglass opacity in the right middle lobe, and nonspecific mediastinal adenopathy pulmonary consultation was requested. Patient states that she has known history of coronary artery disease she had a myocardial infarction in 2009 at that time she underwent angioplasty was to stent placement she was taking medications regularly until 4-1/2 years ago when she decided not to take any medications any more, she has been smoking but she stated that she has been decreasing the amount of cigarettes she is smoking. On 07/17/2018 patient was seen and examined on the telemetry floor she is alert and oriented 3 she was evaluated by cardiology and her cardiac medication were adjusted, currently she is on amiodarone drip, Cardizem drip was discontinued, she was also started on Enyresto, Eliquis, and Aldactone. Clinically she is doing better she is alert and oriented 3 shortness of breath has improved she denies any chest pain no fever or chills no headache or dizziness no cough no nausea or vomiting no abdominal pain no diarrhea and no urinary symptoms. On 07/18/2018 per nursing staff patient was found to have slurred speech and l eft facial droop. Code stroke was initiated. Last known well time [address] AM. CTA and head CT completed. Head CT showing degenerative and nonspecific white matter changes. If there is concern for acute ischemia correlate with MRI as clinically warranted. Per neurosurgeon through code stroke protocol patient is not a candidate for TPA. MRI has been ordered. Patient remains alert and oriented 3. Patient does have slurred speech. Slightly weakened strength on left upper extremity. Left facial droop. Patient denies any chest pain. Patient denies any shortness of breath. Patient denies nausea vomiting or diarrhea. Patient denies any urinary burning or frequency. Patient remains on aspirin and eliquis for atrial fibrillation. Objective - Vital Signs Vital signs: Vital Signs Temp 98.2 F 07/18/18 08:00 Pulse 75 07/18/18 08:00 Resp 17 07/18/18 08:00 BP 145/72 07/18/18 08:00 Pulse Ox 95 07/18/18 08:56 Intake & Output 07/17/18 07/18/18 07/18/18 18:59 06:59 18:59 Intake Total 933.285 8745.917 Balance 314.557 8742.917 Weight 100.7 kg Intake: Intake, IV Titration 268.091 197.917 Amount Amiodarone 300 mg In 197.917 Dextrose 5% in Water 250 ml @ 0.5 MG/MIN 25 mls/hr IV .Q10H [facility] Rx#: [id number] Dextrose 5% in Water 100 100 ml @ 618 mls/hr IV .Q10M ONE with Amiodarone 150 mg Rx#:[id number] Heparin Sod,Pork in 0.45% 168.091 NaCl 25,000 unit In 0.45 % NaCl 1 250ml.bag @ 10 UNITS/KG/HR 9.979 mls/hr IV .Q24H [facility] Rx#: [id number] Oral 230 1450 Other: Voiding Method Toilet Toilet # Voids 2 3 - Exam In general patient is alert and oriented 3 in no apparent distress HEENT head normocephalic and atraumatic Neck is supple no JVD no goiter no lymphadenopathy Chest exam reveals a scattered crackles in both lung rocha no wheezing Cardiac exam reveals irregular heart sounds S1 and S2 no gallops no murmurs Abdomen is soft nontender no organomegaly with normal bowel sounds Extremity exam reveals mild edema bilaterally no cyanosis or clubbing Neurological examination reveals no gross focal deficit - Labs CBC & Chem 7: 07/18/18 10:03 07/18/18 10:03 Labs: Abnormal Lab Results - Last 24 Hours (Table) 07/18/18 07/18/18 07/18/18 Range/Units 06:21 06:21 08:56 WBC (3.8-10.6) k/uL RBC 6.35 H (3.80-5.40) m/uL MCV 69.7 L (80.0-100.0) fL MCH 20.1 L (25.0-35.0) pg MCHC 28.8 L (31.0-37.0) g/dL RDW 20.1 H (11.5-15.5) % Plt Count 451 H (150-450) k/uL Neutrophils # (1.3-7.7) k/uL Monocytes # (0-1.0) k/uL Potassium (3.5-5.1) mmol/L Carbon Dioxide 32 H (22-30) mmol/L BUN 26 H (7-17) mg/dL Glucose (74-99) mg/dL POC Glucose (mg/dL) 120 H (75-99) mg/dL AST 37 H (14-36) U/L ALT 113 H (9-52) U/L Alkaline Phosphatase 155 H (38-126) U/L Total Protein (6.3-8.2) g/dL 07/18/18 07/18/18 Range/Units 10:03 10:03 WBC 12.2 H (3.8-10.6) k/uL RBC 6.27 H (3.80-5.40) m/uL MCV 69.7 L (80.0-100.0) fL MCH 20.4 L (25.0-35.0) pg MCHC 29.3 L (31.0-37.0) g/dL RDW 20.7 H (11.5-15.5) % Plt Count 480 H (150-450) k/uL Neutrophils # 8.9 H (1.3-7.7) k/uL Monocytes # 1.2 H (0-1.0) k/uL Potassium 3.4 L (3.5-5.1) mmol/L Carbon Dioxide 36 H (22-30) mmol/L BUN 24 H (7-17) mg/dL Glucose 102 H (74-99) mg/dL POC Glucose (mg/dL) (75-99) mg/dL AST (14-36) U/L ALT 112 H (9-52) U/L Alkaline Phosphatase 169 H (38-126) U/L Total Protein 6.2 L (6.3-8.2) g/dL Assessment and Plan Assessment: #1 acute congestive heart failure exacerbation, today patient was evaluated by cardiology she was started on Entresto, amiodarone drip, Eliquis and Aldactone #2 atrial fibrillation with rapid ventricular response, started on amiodarone drip, off Cardizem drip at this time #3 slurred speech and left facial droop possibly related to CVA. Head CT completed showing degenerative nonspecific white matter changes. If there is concern for acute ischemia correlate with MRI as clinically warranted. Patient currently on eliquis and aspirin for atrial fibrillation. MRI of the head has been ordered. CTA pending #4 ground glass opacity in the right middle lobe was nonspecific mediastinal adenopathy, pulmonary consultation was requested #5 small bilateral pleural effusion #6 tobacco abuse patient counseled in length to quit during this admission #7 elevated d-dimer was negative CT scan angiogram of the chest for pulmonary embolism #8 leukocytosis white blood count 13.4 patient is not febrile no clear evidence of pneumonia on chest x-ray will check urine analysis to rule out any infectious process continue to monitor white blood count #9 mild elevation in troponin level will monitor #10 elevated liver enzymes including AST ALT alkaline phosphatase and elevated total bilirubin at 1.7 will check liver ultrasound #11 previous history of coronary artery disease, hyperlipidemia, myocardial infarction in 2009 patient had 2 stent placement at that time. She states that she was taking medication until about 4/2 years ago and then she decided not to take any more medications she was counseled in length in that regard. DVT prophylaxis eliquis. Prophylaxis Protonix I performed an examination of the patient and discussed their management with the Nurse Practitioner. I have reviewed the Nurse Practitioner's notes and agree with the documented findings and plan of care
[2018-07-18 11:02] LABS: Creatine Kinase MB 0.9 ng/mL (0.0-2.4); Troponin I 0.032 ng/mL (0.000-0.034)
--- NOTE | 2018-07-18 11:16 | CT ---
EXAMINATION TYPE: CODE STROKE: CTA head neck DATE OF EXAM: 07/18/2018 HISTORY: New onset of slurred speech COMPARISON: CT brain same date CT DLP: 567.5 mGycm. Automated Exposure Control for Dose Reduction was Utilized. TECHNIQUE: CTA scan of the neck and brain is performed with IV Contrast, patient injected with 50 mL of Isovue 370, axial images are obtained, coronal and sagittal reformatted images are reviewed. Thre e-D reconstructed images are created on an independent workstation and reviewed. FINDINGS: Carotid/Vascular Structures: Transverse aorta is patent. 3 super aortic branch vessels are present. V ertebral arteries are patent and codominant. Mild atheromatous changes are present in the carotid bif urcations. There is no evident embolus or dissection. Innominate artery, left and right subclavian ar teries are patent. Common carotid, internal and external carotid arteries are patent. Cerebral vascul ar calcifications present along the siphon. Other: There is a small right pleural effusion present with associated atelectasis. There are nonenla rged mediastinal nodes present, prevascular nodes also present. Coronary artery calcifications are no surendra. Mild prominence of pulmonary artery, consider pulmonary artery hypertension. Inflammatory change present in the right maxillary sinus. Nodular hypodense foci noted within the thyroid gland bilatera lly. Degenerative disc changes noted in the cervical spine, thoracic spondylosis present. IMPRESSION: No dissection or embolus. Atheromatous changes are present. Pleural effusion, correlate f or right maxillary sinusitis. Visualized above.
[2018-07-18 11:30] LABS: Partial Thromboplastin Time 21.2 sec (22.0-30.0)
--- NOTE | 2018-07-18 12:12 | CDI ---
Documentation Clarification Form Date: 07/18/2018 12:04:46 PM From: Alice SaraviaBoatengDEON, CCDS Admit Date: 07/16/2018 12:28:00 PM Patient Name: Pinky Chandler Visit Number: [id number] Discharge Date: ATTENTION: The Clinical Documentation Specialists (CDI) and [facility] Coding Staff appreciate your assistance in clarifying documentation. Please respond to the clarification below the line at the bottom and electronically sign. The CDI & [facility] Coding staff will review the response and follow-up if needed. Please note: Queries are made part of the Legal Health Record. If you have any questions, please contact the author of this message via ITS. Dr. Lydia Garcia: Per the cardiology consult: "This patient is admitted with acute congestive cardiac failure. The patient is in atrial flutter fibrillation with a moderately rapid ventricular response." History/Risk Factors: CAD with previous [place] & coronary stents, Hyperlipidemia. Clinical Indicators: Presented with cough, SOB & leg swelling. EKG/telemetry: R 146 Atrial flutter with variable AV block. Treatment: Telemetry, CHF clinical protocol, Tejeda cath, cardiology & pulmonary consults. IV Lasix, IV Cardizem drip, IV Heparin drip, Aspirin, IV Amiodarone, started on anticoagulant. In your professional opinion, can you please clarify the type of Atrial Fibrillation and/or Atrial Flutter, if known? Atrial Fibrillation: o Chronic/Permanent o Paroxysmal o Persistent o Other, please specify o Unable to determine Atrial Flutter: o Atypical o Typical o Type I o Type II o Other, please specify: o Unable to determine (Last Revision: May 2017) MTDD
--- NOTE | 2018-07-18 12:21 | CDI ---
Documentation Clarification Form Date: 07/18/2018 12:13:56 PM From: Alice SaraviaBoatengDEON, CCDS Admit Date: 07/16/2018 12:28:00 PM Patient Name: Pinky Chandler Visit Number: [id number] Discharge Date: ATTENTION: The Clinical Documentation Specialists (CDI) and [facility] Coding Staff appreciate your assistance in clarifying documentation. Please respond to the clarification below the line at the bottom and electronically sign. The CDI & [facility] Coding staff will review the response and follow-up if needed. Please note: Queries are made part of the Legal Health Record. If you have any questions, please contact the author of this message via ITS. Dr. Lydia Garcia: Per the cardiology consult: "Prior history of myocardial infarction with stent placement. The patient's echocardiogram reveals severely impaired left ventricular systolic function with ejection fraction of 25-30 percent." History/Risk Factors: CAD with previous [place] & stent, Hyperlipidemia. Smoker. Clinical Indicators: Presented with sob, cough & leg swelling. VS: WBC 13.4^, Pl Ct 466^, Neut 9.65^, D Dimer 0.94^, BUN 25^, Glucose 122^, Troponin 0.053^^, 0.053^^, 0.056^^: BNP 5690 Chest X Ray: congestive heart failure. CTA chest: Bilateral pleural effusions > right. Treatment: IV Lasix, IV Cardizem, IV Heparin drip, Nitropaste, smoking cessation. In your professional opinion, can you please clarify the acuity and type of CHF if known? Systolic Heart Failure: o Acute o Chronic o Acute on Chronic Diastolic Heart Failure: o Acute o Chronic o Acute on Chronic Systolic & Diastolic Heart Failure: o Acute o Chronic o Acute on Chronic Heart Failure Unable to Determine Other, please specify (Last Revision: May 2017) MTDD
[2018-07-18 13:58] VITALS: RESP 18; TEMP 97.3
--- NOTE | 2018-07-18 14:19 | P.PN ---
Subjective Progress Note Date: 07/18/18 This is a 67-year-old female seen in consultation yesterday by Dr. Garcia. Patient has a known history of coronary artery disease with prior stent placement in 2009 or so. Has not followed regularly with the physician in the office for quite some time. She also has history of hypertension, hyperlipidemi a, nicotine dependence, she initially presented to the hospital on this occasion with symptoms of shortness of breath with associated cough as well as lower extremity edema. Patient was found to have acute congestive heart failure, she was also noted to be in typical atrial flutter with a moderately rapid ventricular response and has since converted to normal sinus rhythm. Echocardiogram with Doppler study is been performed and is yet pending. This morning patient developed slurred speech and left-sided facial droop this morning and a code stroke was initiated. CTA and head CT were completed, head CT showed degenerative and nonspecific white matter changes, if there is concern for acute ischemia correlate with MRI as clinically warranted. Neurosurgeon felt that the patient was not a candidate for TPA and an MRI has been ordered. She remains alert and oriented 3, continues to have slurring of her speech and slight weakness in the left upper extremity, positive left-sided facial droop remains. In a normal sinus rhythm today, blood pressure 140/70 with a heart rate in the 70s, Objective - Vital Signs Vital signs: Vital Signs Temp 98.2 F 07/18/18 08:00 Pulse 75 07/18/18 08:00 Resp 17 07/18/18 08:00 BP 145/72 07/18/18 08:00 Pulse Ox 95 07/18/18 08:56 Intake & Output 07/17/18 07/18/18 07/18/18 18:59 06:59 18:59 Intake Total 018.373 5522.917 Balance 261.909 9532.917 Weight 100.7 kg Intake: Intake, IV Titration 268.091 197.917 Amount Amiodarone 300 mg In 197.917 Dextrose 5% in Water 250 ml @ 0.5 MG/MIN 25 mls/hr IV .Q10H [facility] Rx#: [id number] Dextrose 5% in Water 100 100 ml @ 618 mls/hr IV .Q10M ONE with Amiodarone 150 mg Rx#:[id number] Heparin Sod,Pork in 0.45% 168.091 NaCl 25,000 unit In 0.45 % NaCl 1 250ml.bag @ 10 UNITS/KG/HR 9.979 mls/hr IV .Q24H [facility] Rx#: [id number] Oral 230 1450 Other: Voiding Method Toilet Toilet # Voids 2 3 - Exam HEAD: Normocephalic/atraumatic. EYES: Normal reaction of pupils, equal size. Conjunctiva pink, sclera white. NOSE: Clear with pink turbinates. THROAT: No erythema or exudates. NECK: No masses, no JVD, no thyroid enlargement, no adenopathy. CHEST: No chest wall deformity. Symmetrical expansion. LUNGS: Equal air entry with basilar rales CVS: Regular rate and rhythm, normal S1 and S2, no gallops, no murmurs, no rubs ABDOMEN: Soft, nontender. No hepatosplenomegaly, normal bowel sounds, no guarding or rigidity. EXTREMITIES: No clubbing, no edema, no cyanosis, 2+ pulses and upper and lower extremities. MUSCULOSKELETAL: Muscle strength and tone normal. SPINE: No scoliosis or deformity SKIN: No rashes CENTRAL NERVOUS SYSTEM: Alert and oriented -3. Positive slurring of speech, left-sided facial droop and mild left-sided hand weakness PSYCHIATRIC: Alert and oriented -3. Appropriate affect. Intact judgment and insight. - Labs CBC & Chem 7: 07/18/18 10:03 07/18/18 10:03 Labs: Abnormal Lab Results - Last 24 Hours (Table) 07/18/18 07/18/18 07/18/18 Range/Units 06:21 06:21 08:56 WBC (3.8-10.6) k/uL RBC 6.35 H (3.80-5.40) m/uL MCV 69.7 L (80.0-100.0) fL MCH 20.1 L (25.0-35.0) pg MCHC 28.8 L (31.0-37.0) g/dL RDW 20.1 H (11.5-15.5) % Plt Count 451 H (150-450) k/uL Neutrophils # (1.3-7.7) k/uL Monocytes # (0-1.0) k/uL APTT (22.0-30.0) sec Potassium (3.5-5.1) mmol/L Carbon Dioxide 32 H (22-30) mmol/L BUN 26 H (7-17) mg/dL Glucose (74-99) mg/dL POC Glucose (mg/dL) 120 H (75-99) mg/dL AST 37 H (14-36) U/L ALT 113 H (9-52) U/L Alkaline Phosphatase 155 H (38-126) U/L Total Protein (6.3-8.2) g/dL 07/18/18 07/18/18 07/18/18 Range/Units 10:03 10:03 10:03 WBC 12.2 H (3.8-10.6) k/uL RBC 6.27 H (3.80-5.40) m/uL MCV 69.7 L (80.0-100.0) fL MCH 20.4 L (25.0-35.0) pg MCHC 29.3 L (31.0-37.0) g/dL RDW 20.7 H (11.5-15.5) % Plt Count 480 H (150-450) k/uL Neutrophils # 8.9 H (1.3-7.7) k/uL Monocytes # 1.2 H (0-1.0) k/uL APTT 21.2 L (22.0-30.0) sec Potassium 3.4 L (3.5-5.1) mmol/L Carbon Dioxide 36 H (22-30) mmol/L BUN 24 H (7-17) mg/dL Glucose 102 H (74-99) mg/dL POC Glucose (mg/dL) (75-99) mg/dL AST (14-36) U/L ALT 112 H (9-52) U/L Alkaline Phosphatase 169 H (38-126) U/L Total Protein 6.2 L (6.3-8.2) g/dL Assessment and Plan Plan: Assessment and plan #1 systolic congestive heart failure acute on chronic #2 paroxysmal atrial fibrillation currently in normal sinus rhythm. Paroxsysmanl atrial flutter, typical #3 slurring of speech with associated left-sided facial droop likely secondary to CVA. Head CT showing degenerative nonspecific white matter changes. MRI has been requested. #4 groundglass obesity in the right middle lobe nonspecific mediastinal adenopathy, pulmonary consultation requested. #5 nicotine dependence #6 mild abnormality in troponin, not consistent with acute coronary syndrome. #7 known history of coronary artery disease with prior myocardial infarction and stent placement #8 hyperlipidemia #9 hypertension Plan We will start the patient on oral amiodarone, continue anticoagulation with Eliquis. DNP note has been reviewed, I agree with a documented findings and plan of care. Patient was seen and examined.
--- NOTE | 2018-07-18 14:54 | P.PN ---
Subjective Progress Note Date: 07/18/18 Principal diagnosis: Mary marin RVR, shortness of breath, acute exacerbation of CHF This is a 67-year-old with female patient, past medical history of coronary artery disease with previous stenting, myocardial infarction, hypertension, hyperlipidemia, current every day smoker, who presented to the hospital on 2018 for evaluation of dyspnea, cough, and increased extremity swelling. Patient had been having symptoms of upper respiratory infection, with sinus problems, cough and some yellow sputum production. Denied any fever or chills, has some mild discomfort in her chest and her back she described as an ache. The symptoms were similar to previous episode of myocardial infarction. Her swelling has in the bilateral lower extremities over the past week. Denied any calf pain, no nausea, vomiting or diarrhea, no diaphoresis. No fever or chills. Patient has no history of chronic lung problems, no COPD, no asthma, he is not on any inhalers or oxygen at home. She states she has not seen a physician in the last 4 years, after her , not even her heart doctor for follow-up. On arrival patient was placed on a welding tester which showed atrial flutter with a rate between 120 and 140, she was started on Cardizem drip, we were no acute ST changes. Chest x-ray showed increased interstitial markings concerning for congestive heart failure, lab work showed a mild leukocytosis, with white blood cell count of 13.4, hemoglobin of 12.2, d-dimer was mildly elevated at 0.94, troponins were elevated at 0.053, 0.053 and 0.056, her BNP was 5690. Electrolytes and renal profile were unremarkable. CT angios chest was negative for pulmonary embolus, it showed bilateral pleural effusions greater on the right than the left, and groundglass opacity in the right middle lobe was nonspecific mediastinal adenopathy. Patient was started on IV diuretics, 40 mg of Lasix every 8 hours, she is diuresing, breathing easier and lower extremity edema is improving. On 07/18/2018 patient seen in follow-up on selective care unit, she is awake and alert, and there is obvious left-sided facial droop on today's exam, with nasolabial deviation on the left, and patient has a slurred speech, the onset was noted sometime this morning, and "stroke was activated showing degenerative and nonspecific white matter changes, concern for acute ischemia, angiography CT showed no dissection or embolus, atheromatous changes. Patient had converted to normal sinus rhythm, with a rate of 70s, echocardiogram with Doppler has been performed and the results are pending at this time. Today's labs have been reviewed showing white blood cell count of 12.2, hemoglobin of 12.8, INR is 1.0, serum sodium is 141, potassium is 3.4, chloride is 99, CO2 36, B1 is 24, creatinine 0.88, troponin was 0.032, he has been started on oral Eliquis, she is on oral amiodarone for rate control, is on IV Lasix of 40 mg every 8 hours. Apparently the neurosurgeon has recommended follow-up MRI, and patient was deemed not appropriate for TPA. We will consult neurology, and we'll initiate transfer to [facility] for possibility of neurointervention Objective - Vital Signs Vital signs: Vital Signs Temp 97.3 F L 07/18/18 12:00 Pulse 70 07/18/18 12:00 Resp 18 07/18/18 12:00 BP 158/84 07/18/18 12:00 Pulse Ox 93 L 07/18/18 12:00 Intake & Output 07/17/18 07/18/18 07/18/18 18:59 06:59 18:59 Intake Total 146.945 0646.917 Balance 681.583 6688.917 Weight 100.7 kg Intake: Intake, IV Titration 268.091 197.917 Amount Amiodarone 300 mg In 197.917 Dextrose 5% in Water 250 ml @ 0.5 MG/MIN 25 mls/hr IV .Q10H [facility] Rx#: [id number] Dextrose 5% in Water 100 100 ml @ 618 mls/hr IV .Q10M ONE with Amiodarone 150 mg Rx#:[id number] Heparin Sod,Pork in 0.45% 168.091 NaCl 25,000 unit In 0.45 % NaCl 1 250ml.bag @ 10 UNITS/KG/HR 9.979 mls/hr IV .Q24H [facility] Rx#: [id number] Oral 230 1450 Other: Voiding Method Toilet Toilet # Voids 2 3 3 - Exam GENERAL EXAM: Alert, active, comfortable in no apparent distress. Patient has obvious left-sided facial droop, with flattening of the nasolabial fold on the left, and slurred speech HEAD: Normocephalic/atraumatic. EYES: Normal reaction of pupils, equal size. Conjunctiva pink, sclera white. NOSE: Clear with pink turbinates. THROAT: No erythema or exudates. NECK: No masses, no JVD, no thyroid enlargement, no adenopathy. CHEST: No chest wall deformity. Symmetrical expansion. LUNGS: Equal air entry with basilar rales CVS: Regular rate and rhythm, normal S1 and S2, no gallops, no murmurs, no rubs ABDOMEN: Soft, nontender. No hepatosplenomegaly, normal bowel sounds, no guarding or rigidity. EXTREMITIES: No clubbing, no edema, no cyanosis, 2+ pulses and upper and lower extremities. MUSCULOSKELETAL: Muscle strength and tone normal. SPINE: No scoliosis or deformity SKIN: No rashes CENTRAL NERVOUS SYSTEM: Alert and oriented -3. Left-sided facial droop, slurred speech, tone is normal in all 4 extremities. PSYCHIATRIC: Alert and oriented -3. Appropriate affect. Intact judgment and insight. - Labs CBC & Chem 7: 07/18/18 10:03 07/18/18 10:03 Labs: Abnormal Lab Results - Last 24 Hours (Table) 07/18/18 07/18/18 07/18/18 Range/Units 06:21 06:21 08:56 WBC (3.8-10.6) k/uL RBC 6.35 H (3.80-5.40) m/uL MCV 69.7 L (80.0-100.0) fL MCH 20.1 L (25.0-35.0) pg MCHC 28.8 L (31.0-37.0) g/dL RDW 20.1 H (11.5-15.5) % Plt Count 451 H (150-450) k/uL Neutrophils # (1.3-7.7) k/uL Monocytes # (0-1.0) k/uL APTT (22.0-30.0) sec Potassium (3.5-5.1) mmol/L Carbon Dioxide 32 H (22-30) mmol/L BUN 26 H (7-17) mg/dL Glucose (74-99) mg/dL POC Glucose (mg/dL) 120 H (75-99) mg/dL AST 37 H (14-36) U/L ALT 113 H (9-52) U/L Alkaline Phosphatase 155 H (38-126) U/L Total Protein (6.3-8.2) g/dL 07/18/18 07/18/18 07/18/18 Range/Units 10:03 10:03 10:03 WBC 12.2 H (3.8-10.6) k/uL RBC 6.27 H (3.80-5.40) m/uL MCV 69.7 L (80.0-100.0) fL MCH 20.4 L (25.0-35.0) pg MCHC 29.3 L (31.0-37.0) g/dL RDW 20.7 H (11.5-15.5) % Plt Count 480 H (150-450) k/uL Neutrophils # 8.9 H (1.3-7.7) k/uL Monocytes # 1.2 H (0-1.0) k/uL APTT 21.2 L (22.0-30.0) sec Potassium 3.4 L (3.5-5.1) mmol/L Carbon Dioxide 36 H (22-30) mmol/L BUN 24 H (7-17) mg/dL Glucose 102 H (74-99) mg/dL POC Glucose (mg/dL) (75-99) mg/dL AST (14-36) U/L ALT 112 H (9-52) U/L Alkaline Phosphatase 169 H (38-126) U/L Total Protein 6.2 L (6.3-8.2) g/dL Assessment and Plan Plan: Assessment: #1. Acute exacerbation of congestive heart failure with an unknown ejection fraction #2. Elevated troponins, rule out non-ST elevated MN #3. A flutter with rapid ventricular response, likely in sinus rhythm #4. Acute onset of left-sided facial droop, and slurred speech, had CT showing degenerative changes, suspect acute CVA, patient was deemed not appropriate for TPA infusion #5. History of coronary artery disease with previous stenting #6. Hypertension #7. Hyperlipidemia #8. Previous myocardial infarction #9. Chronic and ongoing nicotine dependence Plan: Continue current treatment, will consult neurology, transfer to [facility] for possibility of neuro intervention was recommended, patient is on oral anticoagulation, she was deemed not appropriate for TPA infusion, she has ongoing left-sided facial droop, and slurred speech. Case was discussed with attending addition service, and transfer will be initiated I performed a history & physical examination of the patient and discussed their management with my nurse practitioner, Amanda Guzman. I reviewed the nurse practitioner's note and agree with the documented findings and plan of care. Lung sounds are positive for basilar rales. The findings and the impression was discussed with the patient. I attest to the documentation by the nurse practitioner. Time with Patient: Less than 30
--- NOTE | 2018-07-18 15:07 | P.DS ---
Providers Date of admission: 07/16/18 12:28 Expected date of discharge: 07/18/18 Attending physician: Marilee Wagner Consults: 07/16/18 12:29 Consult Physician Urgent Consulting Provider: Lydia Garcia Consult Reason/Comments: a flutter w rvr, chf Do you want consulting provider notified?: Yes 07/16/18 14:35 Consult Physician Routine Consulting Provider: Ca Hernandez Consult Reason/Comments: abnormal CT scan of the chest Do you want consulting provider notified?: Yes 07/18/18 14:13 Consult Physician Routine Consulting Provider: Poli Benjamin Consult Reason/Comments: left facial droop, slurred speech Do you want consulting provider notified?: Yes Primary care physician: Astrid Metz Hospital Course: Discharge diagnosis #1 acute congestive heart failure exacerbation, today patient was evaluated by cardiology she was started on Entresto, amiodarone drip, Eliquis and Aldactone #2 atrial fibrillation with rapid ventricular response, started on amiodarone drip, off Cardizem drip at this time #3 slurred speech and left facial droop possibly related to CVA. Head CT completed showing degenerative nonspecific white matter changes. If there is concern for acute ischemia correlate with MRI as clinically warranted. Patient currently on eliquis and aspirin for atrial fibrillation. MRI of the head has been ordered. Patient to be transferred to [facility] where patient to be seen by neurology services #4 ground glass opacity in the right middle lobe was nonspecific mediastinal adenopathy, pulmonary consultation was requested #5 small bilateral pleural effusion #6 tobacco abuse patient counseled in length to quit during this admission #7 elevated d-dimer was negative CT scan angiogram of the chest for pulmonary embolism #8 leukocytosis white blood count 13.4 patient is not febrile no clear evidence of pneumonia on chest x-ray will check urine analysis to rule out any infectious process continue to monitor white blood count #9 mild elevation in troponin level will monitor #10 elevated liver enzymes including AST ALT alkaline phosphatase and elevated total bilirubin at 1.7 will check liver ultrasound #11 previous history of coronary artery disease, hyperlipidemia, myocardial infarction in 2009 patient had 2 stent placement at that time. She states that she was taking medication until about 4/2 years ago and then she decided not to take any more medications she was counseled in length in that regard. Hospital Course Pinky Heidenrich is a 67-year-old female who presented to [facility] emergency room with a chief complaints of cough lower extremity swelling and worsening shortness of breath, she was evaluated in emergency room and was found to have atrial fibrillation with rapid ventricular response she was started on IV heparin and IV Cardizem drip and was admitted to telemetry floor, cardiology consultation was requested, also her presentation was compatible was acute congestive heart failure exacerbation with pulmonary venous congestion and small bilateral pleural effusions. D-dimer was elevated in the emergency room, computed tomography scan angiogram of the chest was done and was negative for pulmonary embolism, however it revealed evidence of groundglass opacity in the right middle lobe, and nonspecific mediastinal adenopathy pulmo nary consultation was requested. Patient states that she has known history of coronary artery disease she had a myocardial infarction in 2009 at that time she underwent angioplasty was to stent placement she was taking medications regularly until 4-1/2 years ago when she decided not to take any medications any more, she has been smoking but she stated that she has been decreasing the amount of cigarettes she is smoking. On 07/17/2018 patient was seen and examined on the telemetry floor she is alert and oriented 3 she was evaluated by cardiology and her cardiac medication were adjusted, currently she is on amiodarone drip, Cardizem drip was discontinued, she was also started on Enyresto, Eliquis, and Aldactone. Clinically she is doing better she is alert and oriented 3 shortness of breath has improved she denies any chest pain no fever or chills no headache or dizziness no cough no nausea or vomiting no abdominal pain no diarrhea and no urinary symptoms. On 07/18/2018 per nursing staff patient was found to have slurred speech and left facial droop. Code stroke was initiated. Last known well time 8 AM. CTA and head CT completed. Head CT showing degenerative and nonspecific white matter changes. If there is concern for acute ischemia correlate with MRI as clinically warranted. Per neurosurgeon through code stroke protocol patient is not a candidate for TPA. MRI has been ordered. Patient remains alert and oriented 3. Patient does have slurred speech. Slightly weakened strength on left upper extremity. Left facial droop. Patient denies any chest pain. Patient denies any shortness of breath. Patient denies nausea vomiting or diarrhea. Patient denies any urinary burning or frequency. Patient remains on aspirin and eliquis for atrial fibrillation. Discussed case with pulmonary services. Patient to be transferred to [facility] where neurology services are available. Patient remains with left facial droop and slurred speech. Discussed with patient and family. Agreeable to transfer I performed an examination of the patient and discussed their management with the Nurse Practitioner. I have reviewed the Nurse Practitioner's notes and agree with the documented findings and plan of care Patient Condition at Discharge: Stable Plan - Discharge Summary Discharge Rx Participant: Yes New Discharge Prescriptions: No Action Cholecalciferol [Vitamin D3 (25 Mcg = 1000 Iu)] 1,000 unit PO DAILY Magnesium 200 mg PO DAILY Discharge Medication List Cholecalciferol [Vitamin D3 (25 Mcg = 1000 Iu)] 1,000 unit PO DAILY 07/16/18 [History] Magnesium 200 mg PO DAILY 07/16/18 [History] Follow up Appointment(s)/Referral(s): Astrid Metz MD [Primary Care Provider] - 1-2 days Patient Instructions/Handouts: How to Stop Smoking (DC)
[2018-07-18] MEDS ORDERED: AMIODARONE 200 MG TAB PO SCH (16:00)
[2018-07-18] MEDS ORDERED: POTASSIUM CHLORIDE ER 20 MEQ TAB.ER PO SCH (16:00)
[2018-07-18 16:50] VITALS: BP 164/84; PULSE 78
--- NOTE | 2018-07-18 16:52 | MR ---
EXAMINATION TYPE: MR brain wo/w con DATE OF EXAM: 07/18/2018 COMPARISON: None HISTORY: New onset of slurred speech, stroke TECHNIQUE: Multiplanar, multisequence images of the brain and brainstem is performed without and with IV contras t, utilizing 10 mL intravenous Gadavist . FINDINGS: There is diffuse cerebral cortical atrophy. There is patchy increased signal on the T2 and FLAIR images in the periventricular white matter. There are coalescent areas that measure up to 1.5 c m. There is no mass effect nor midline shift. There is no sign of intracranial hemorrhage. There is a patchy 2 x 1.5 cm area of increased signal in the white matter right parietal lobe consistent with a cute infarct on the diffusion images. Brainstem appears fairly normal. Sella turcica is normal. Corpus callosum appears intact. Contrast im ages show no pathologic enhancement. There is mucosal thickening and fluid level right maxillary sinus. IMPRESSION: There is evidence of acute white matter infarct right parietal lobe. Cerebral atrophy. Patchy white matter signal changes in both cerebral hemispheres consistent with chronic small vessel ischemia. No cortical infarct.
[2018-07-19] MEDS ORDERED: PANTOPRAZOLE 40 MG TABLET PO SCH (07:30)
[2018-07-19] MEDS ORDERED: ASPIRIN 81 MG PO SCH (09:00)
== END 2018-07-18 17:59 | disposition short-term general hospital (02) | DRG 291 ==
LOC: EC 10:04 → 3SCARD 12:28
PROVIDERS: ADMIT Internal Medicine; ATTEND Internal Medicine
DX: I11.0 Hypertensive heart disease with heart failure (principal); I63.9 Cerebral infarction, unspecified; I48.3 Typical atrial flutter; I50.23 Acute on chronic systolic (congestive) heart failure; I48.0 Paroxysmal atrial fibrillation; R29.810 Facial weakness; R47.81 Slurred speech; R40.2142 Coma scale, eyes open, spontaneous, at arrival to emergency department; R40.2362 Coma scale, best motor response, obeys commands, at arrival to emergency department; R40.2252 Coma scale, best verbal response, oriented, at arrival to emergency department; R29.706 NIHSS score 6; R40.2144 Coma scale, eyes open, spontaneous, 24 hours or more after hospital admission; R40.2364 Coma scale, best motor response, obeys commands, 24 hours or more after hospital admission; R40.2254 Coma scale, best verbal response, oriented, 24 hours or more after hospital admission; R59.0 Localized enlarged lymph nodes; D72.829 Elevated white blood cell count, unspecified; I25.10 Atherosclerotic heart disease of native coronary artery without angina pectoris; E78.5 Hyperlipidemia, unspecified; I25.2 Old myocardial infarction; R74.8 Abnormal levels of other serum enzymes; R77.8 Other specified abnormalities of plasma proteins; F17.210 Nicotine dependence, cigarettes, uncomplicated; Z71.6 Tobacco abuse counseling; Z79.899 Other long term (current) drug therapy; Z90.49 Acquired absence of other specified parts of digestive tract; Z95.5 Presence of coronary angioplasty implant and graft; Z98.42 Cataract extraction status, left eye; Z98.41 Cataract extraction status, right eye; Z82.0 Family history of epilepsy and other diseases of the nervous system
CPT/HCPCS: 36415; 70450; 70496; 70498; 70553; 71046; 71275; 76705; 80053; 82550; 82553; 83540; 83550; 83880; 84484; 85025; 85379; 85610; 85730; 93005; 93306; 94640; 94760; 96365; 96368; 96375; 96376; 99291

== ENCOUNTER → 2018-09-08 | Outpatient (CLI) | payer MEDICARE ==
[2018-09-08 16:01] LABS: Anisocytosis Slight; HCT 40.9 % (34.0-46.0); HGB 12.3 gm/dL (11.4-16.0); Hypochromasia Marked; MCH 20.9 pg (25.0-35.0); MCHC 30.2 g/dL (31.0-37.0); MCV 69.2 fL (80.0-100.0); Mean Platelet Volume 7.4; Microcytosis Marked; Platelet Count 337 k/uL (150-450); RBC 5.91 m/uL (3.80-5.40); RDW 17.8 % (11.5-15.5)
[2018-09-09 00:32] LABS: African American GFR (CKD) 102.5 (60.0-200.0); Anion Gap 8.2 mmol/L (4.00-12.00); Carbon Dioxide 25.8 mmol/L (21.6-31.8); Potassium 4.9 mmol/L (3.5-5.5)
== END | disposition home or self-care (01) ==
LOC: LABWHC1 14:54
PROVIDERS: ATTEND Internal Medicine Cardiovascular Disease
DX: Z01.812 Encounter for preprocedural laboratory examination (principal); I48.0 Paroxysmal atrial fibrillation; I25.5 Ischemic cardiomyopathy
CPT/HCPCS: 36415; 80051; 82565; 84520; 85027

== ENCOUNTER 2018-09-20 10:59 | Day surgery (SDC) | payer MEDICARE ==
[~2018-09-20 10:59] MED LIST: ALPRAZolam 0.25 MG TAB PO PRN; ALPRAZolam 0.5 MG TAB PO PRN; ASPIRIN 325 MG TAB PO STA; ATORVASTATIN 80 MG TAB PO STA; NITROGLYCERIN SL TABS 0.4 MG TAB SUBLINGUAL PRN; SODIUM CHLORIDE 0.9% 1,000 ML in EMPTY BAG 1 BAG IV ONE
[2018-09-20] MEDS ORDERED: LIDOCAINE 1% INJ 10MG/ML (20 ML MDV) ONE (12:31)
[2018-09-20] MEDS ORDERED: fentaNYL (PF) 50 MCG/ML 2 ML AMP ONE (12:33)
[2018-09-20] MEDS ORDERED: fentaNYL (PF) 50 MCG/ML 2 ML AMP IVP ONE (12:36)
[2018-09-20] MEDS ORDERED: MIDAZOLAM (PF) 2 MG/2 ML VIAL IVP ONE (12:38)
[2018-09-20] MEDS ORDERED: NITROGLYCERIN SL TABS 0.4 MG TAB SUBLINGUAL ONE ×3 (12:54→13:35)
[2018-09-20] MEDS ORDERED: CLOPIDOGREL 75 MG TAB ONE (12:56)
[2018-09-20] MEDS ORDERED: CLOPIDOGREL 75 MG TAB PO ONE (13:00)
[2018-09-20] MEDS ORDERED: amLODIPine 5 MG TAB ONE (13:31)
[2018-09-20] MEDS ORDERED: amLODIPine 5 MG TAB PO ONE (13:36)
[2018-09-20] MEDS ORDERED: BIVALIRUDIN BOLUS 250 MG/50 ML IV ONE (13:38)
[2018-09-20] MEDS ORDERED: BIVALIRUDIN 250 MG in SODIUM CHLORIDE 0.9% 50 ML IV ONE (13:40)
[2018-09-20] MEDS ORDERED: IOPAMIDOL-370 125ML BTL INJ ONE (13:46)
[2018-09-20] MEDS: NITROGLYCERIN 1000MCG/10ML SYRINGE INTRACORON ONE ×2 (13:51→14:01)
[2018-09-20] MEDS ORDERED: hydrALAZINE HCL 20 MG/ML 1 ML VIAL ONE (14:05)
[2018-09-20] MEDS ORDERED: hydrALAZINE HCL 20 MG/ML 1 ML VIAL IV ONE (14:07)
[2018-09-20] MEDS ORDERED: IOPAMIDOL-370 100ML BTL INJ ONE (14:10)
[2018-09-20] MEDS ORDERED: ZOLPIDEM 5 MG TAB PO PRN (14:18)
[2018-09-20] MEDS ORDERED: RX INFO: IV CONTRAST WAS GIVEN 1 EACH MISC MISCELLANE PRN (14:18)
[2018-09-20] MEDS ORDERED: ATROPINE SULFATE 0.1 MG/ML 10ML SYRINGE IV PRN (14:18)
[2018-09-20] MEDS ORDERED: MAG HYDROX/AL HYDROX/SIMETH 30 ML CUP PO PRN (14:18)
--- NOTE | 2018-09-20 14:21 | CC ---
CARDIAC CATHETERIZATION REPORT Mrs. Chandler is a this is status post prior history of a stent to the circumflex coronary artery. The patient recently was admitted with atrial fibrillation, cardiomyopathy, congestive cardiac failure and subsequent the patient subsequently is stress test showed evidence of inferior lateral ischemia in view of that the patient was recommended to have a cardiac catheterization for definitive diagnosis procedure the right groin was prepped and draped in the usual manner and the skin was infiltrated with 2% Xylocaine. The right femoral artery was entered using Seldinger technique a #6- Filipino sheath was placed in. Selective coronary angiography was then performed in multiple projections and the left ventricular pressures were obtained. Patient tolerated the procedure well. Moderate sedation was used. Total sedation time is 20 minutes selective. CORONARY ANGIOGRAPHY: Left main coronary artery is normal and patent. LAD is a good caliber blood vessels is tortuous. . LEFT ANTERIOR DESCENDING CORONARY ARTERY: Mid LAD has a mild irregularity circumflex coronary artery is a good caliber blood vessel and there is a mild disease noted in the mid circumflex coronary artery. The right coronary artery is a good caliber blood vessel and the mid to distal right coronary artery is a long lesion with focal stenosis of 90%. Left ventricular end- diastolic pressure is 22 mmHg prior to angiography. No gradient is noted across the aortic valve. FINAL IMPRESSION: There isn't long lesion in mid to distal LAD with a focal stenosis of 90%. The proximal circumflex coronary artery has about 40% stenosis. Lad has a mild irregularity. RECOMMENDATIONS: We will review the film with Dr. Carroll Bonilla and consider stent to the RCA. MMODL / IJN: [id number] /
[2018-09-20] MEDS: CARVEDILOL 12.5 MG TAB PO SCH (17:25)
[2018-09-20] MEDS: SODIUM CHLORIDE 0.9% 1,000 ML IV SCH ×2 (17:26→20:30)
[2018-09-20] MEDS: FLUTICASONE 110 MCG INHALER INHALATION SCH (20:38)
[2018-09-20] MEDS ORDERED: ATORVASTATIN 80 MG TAB PO SCH (21:00)
[2018-09-21 07:02] LABS: Anisocytosis Slight; Basophils # (A) 0.1 k/uL (0-0.2); Basophils % (A) 1 %; Eosinophils # (A) 0.3 k/uL (0-0.7); Eosinophils % (A) 2 %; HCT 40.1 % (34.0-46.0); HGB 12.5 gm/dL (11.4-16.0); Hypochromasia Slight; Lymphocytes # (A) 1.5 k/uL (1.0-4.8); Lymphocytes % (A) 14 %; MCH 20.7 pg (25.0-35.0); MCV 66.7 fL (80.0-100.0); Mean Platelet Volume 6.3; Microcytosis Marked; Monocytes % (A) 9 %; Neutrophils # (A) 8.1 k/uL (1.3-7.7); Neutrophils % (A) 73 %; Platelet Count 295 k/uL (150-450); RBC 6.02 m/uL (3.80-5.40); RDW 16.2 % (11.5-15.5)
[2018-09-21] MEDS: CARVEDILOL 12.5 MG TAB PO SCH (07:07)
[2018-09-21 07:18] LABS: African American GFR (CKD) >90 (>60 ml/min/1.73 sqM); Anion Gap 8 mmol/L; Blood Urea Nitrogen 18 mg/dL (7-17); Calcium 9.3 mg/dL (8.4-10.2); Carbon Dioxide 25 mmol/L (22-30); Chloride 107 mmol/L (98-107); Glucose 92 mg/dL (74-99); Potassium 4.6 mmol/L (3.5-5.1); Sodium 140 mmol/L (137-145)
[2018-09-21] MEDS: FLUTICASONE 110 MCG INHALER INHALATION SCH (08:24)
[2018-09-21] MEDS ORDERED: CHOLECALCIFEROL 1,000 UNIT TAB PO SCH (09:00)
[2018-09-21] MEDS ORDERED: ASPIRIN 81 MG PO SCH (09:00)
[2018-09-21] MEDS ORDERED: SPIRONOLACTONE 25 MG TAB PO SCH (09:00)
[2018-09-21] MEDS ORDERED: BIOTIN PO SCH (09:00)
[2018-09-21] MEDS ORDERED: VITAMIN C PO SCH (09:00)
[2018-09-21] MEDS ORDERED: CLOPIDOGREL 75 MG TAB PO SCH (09:00)
[2018-09-21] MEDS ORDERED: MAGNESIUM OXIDE 400 MG TAB PO SCH (09:00)
[2018-09-21] MEDS ORDERED: APIXABAN 2.5 MG TABLET PO SCH (10:00)
[2018-09-21 11:29] VITALS: BMI 32.6
[2018-09-21 12:13] VITALS: BP 126/71; PULSE 71; RESP 17; TEMP 98
--- NOTE | 2018-09-21 16:23 | P.PN ---
Subjective Progress Note Date: 09/21/18 Discharge note This is a 68-year-old female who has prior history of a stent to the circumflex artery, was recently admitted to the hospital with atrial fibrillation, cardiomyopathy, congestive cardiac failure, and subsequently a stress test which showed evidence of inferior lateral ischemia, in view of that the patient was recommended to have a cardiac catheterization for definitive diagnosis. Cardiac catheterization was performed yesterday with a subsequent angioplasty and stenting of the right coronary artery. The patient was seen and examined this morning, denied any chest pain or difficulty in breathing. Lopressor 126/70 with a heart rate is 70, 95% on room air. White blood cell count 11.0, hemoglobin 12.5, platelet count 295. Sodium 140, potassium 4.6, albumin 18 and creatinine 0.6. Patient will be discharged home today, we will start Entresto and have the lead case manager check regarding coverage. Objective - Vital Signs Vital signs: Vital Signs Temp 98.0 F 09/21/18 08:00 Pulse 71 09/21/18 08:00 Resp 17 09/21/18 08:00 BP 126/71 09/21/18 08:00 Pulse Ox 95 09/21/18 08:00 Intake & Output 09/20/18 09/21/18 09/21/18 18:59 06:59 18:59 Intake Total 453.14 240 Output Total 1400 600 Balance -946.86 -360 Weight 94.6 kg 94.6 kg Intake: IV 333.14 Oral 120 240 Output: Urine 1400 600 Other: Voiding Method Toilet # Voids 1 - Exam PHYSICAL EXAMINATION: 68-year-old female in no acute distress at the time of my examination HEENT: [Head is atraumatic, normocephalic. Pupils equal, round. Neck is supple. There is no elevated jugular venous pressure.] HEART EXAMINATION: [Heart S1, S2 normal. PMI normal.] CHEST EXAMINATION:[ Lungs are clear to auscultation and precussion. No chest wall tenderness is noted on palpation or with deep breathing.] ABDOMEN: [ Soft, nontender. Bowel sounds are heard. No organomegaly noted]. EXTREMITIES:[ 2+ peripheral pulses with no evidence of peripheral edema and no calf tenderness noted]. Right groin soft, no evidence of any hematoma. NEUROLOGIC [patient is awake, alert and oriented -3.] . - Labs CBC & Chem 7: 08/07/19 06:05 09/21/18 06:05 Labs: Abnormal Lab Results - Last 24 Hours (Table) 09/21/18 09/21/18 Range/Units 06:05 06:05 WBC 11.0 H (3.8-10.6) k/uL RBC 6.02 H (3.80-5.40) m/uL MCV 66.7 L (80.0-100.0) fL MCH 20.7 L (25.0-35.0) pg RDW 16.2 H (11.5-15.5) % Neutrophils # 8.1 H (1.3-7.7) k/uL BUN 18 H (7-17) mg/dL Assessment and Plan Plan: Assessment and plan #1 status post angioplasty and stenting of the right coronary artery #2 hyperlipidemia #3 ischemic cardiomyopathy #4 paroxysmal atrial fibrillation #5 hypertension Plan Patient will be discharged home today on aspirin 81 mg daily, Plavix 75 mg daily, Eliquis 5 mg by mouth twice a day, after one month the aspirin will be discontinued. Lipitor 80 mg daily, Coreg 12-1/2 mg one tablet by mouth twice a day, Aldactone 25 mg daily,Entresto 24/26mg by mouth twice a day. Follow-up appointment in the office in one to 2 weeks.
--- NOTE | 2018-09-21 20:02 | CC ---
CARDIAC CATHETERIZATION REPORT DATE OF SERVICE: 09/20/2018 PROCEDURE: PTCA and stenting of mid RCA with 3 drug-eluting stents. PERFORMED BY: Dr. Carroll Bonilla. SEDATION: Moderate conscious sedation time was 37 minutes. Patient was administered Versed. Oxygen saturation, hemodynamics and EKG were monitored closely. CLINICAL INFORMATION: Mrs. Pinky Chandler is a 68-year-old lady with a history of CAD, previous circumflex PCI performed in 2010. Since then, she has had issues with heart failure and paroxysmal atrial fibrillation. She came into the hospital with symptoms of angina. After electively admitted by Dr. George Garcia. Cardiac cath revealed a tight 90% mid RCA lesion was following a very tortuous segment. This was a long area of disease. The circumflex had about a 35% narrowing with good flow. RCA was a dominant vessel. She was advised intervention that was performed expeditiously. PROCEDURE NOTE: The existing 6-[place] introducer in the right femoral artery was used to perform procedure. I used an All Right 3.5 guide catheter to cannulate the right coronary artery. The run-through wire was used to cross the lesion. Predilatation was performed with a 15 mm long 2.5 caliber NC Trek balloon. Subsequently a 3 stents were deployed. The 1st was at 3.25 caliber 15 mm stent in the midportion. Distally, there was a 3.0 caliber 8 mm stent proximally there with a 3.5 caliber 8 mm Xience stent. All of these were 3 drug-eluting stents. Excellent angiographic result was achieved. Patient had a significant inferior ST elevation, but no significant chest discomfort. Excellent angiographic result without complication was achieved. Patient received Angiomax bolus and infusion as per protocol. He also received 600 mg of Plavix. Excellent angiographic result without complication was achieved. The sheath was taken out and Angio-Seal device used to secure hemostasis and she was sent to the room in stable condition. MMODL / IJN: [id number] /
== END 2018-09-21 12:10 | disposition home or self-care (01) ==
LOC: CATHCVL 10:59 → 3SCARD 14:18 → CATHCVL 09-21 12:10
PROVIDERS: ATTEND Internal Medicine Cardiovascular Disease
DX: I25.10 Atherosclerotic heart disease of native coronary artery without angina pectoris (principal); I11.0 Hypertensive heart disease with heart failure; I50.9 Heart failure, unspecified; I48.0 Paroxysmal atrial fibrillation; I25.5 Ischemic cardiomyopathy; E11.69 Type 2 diabetes mellitus with other specified complication; E78.2 Mixed hyperlipidemia; I77.1 Stricture of artery; Z72.0 Tobacco use; I25.2 Old myocardial infarction; Z95.5 Presence of coronary angioplasty implant and graft; Z79.01 Long term (current) use of anticoagulants; Z79.899 Other long term (current) drug therapy; Z88.8 Allergy status to other drugs, medicaments and biological substances
CPT/HCPCS: 94640; 93458; 80048; 85025; C9600; C1760; C1887; C1769 ×4; C1725; C1894; C1874; J0360; J3010; J0583; Q9967 ×2; J2250

== ENCOUNTER → 2018-11-21 | Outpatient (CLI) | payer MEDICARE ==
[2018-11-21 19:48] LABS: African American GFR (CKD) 87.2 (60.0-200.0); Anion Gap 11.4 mmol/L (4.00-12.00); Calcium 9.5 mg/dL (8.7-10.3); Carbon Dioxide 24.6 mmol/L (21.6-31.8); Potassium 5.4 mmol/L (3.5-5.5)
== END | disposition home or self-care (01) ==
LOC: LABWHC1 10:16
PROVIDERS: ATTEND Internal Medicine Cardiovascular Disease
DX: I25.2 Old myocardial infarction (principal); I50.20 Unspecified systolic (congestive) heart failure; E11.69 Type 2 diabetes mellitus with other specified complication; E78.2 Mixed hyperlipidemia; I25.10 Atherosclerotic heart disease of native coronary artery without angina pectoris; I50.9 Heart failure, unspecified
CPT/HCPCS: 36415; 80048; 83880

== ENCOUNTER → 2020-02-26 | Outpatient (CLI) | payer MEDICARE ==
[2020-02-26 10:45] LABS: Basophils # (A) 0.1 k/uL (0-0.2); Basophils % (A) 1 %; Eosinophils # (A) 0.3 k/uL (0-0.7); Eosinophils % (A) 3 %; HCT 37.1 % (34.0-46.0); HGB 11.9 gm/dL (11.4-16.0); Hypochromasia Slight; Lymphocytes # (A) 2.4 k/uL (1.0-4.8); Lymphocytes % (A) 27 %; MCH 21.7 pg (25.0-35.0); MCV 67.8 fL (80.0-100.0); Mean Platelet Volume 6.7; Microcytosis Marked; Monocytes # (A) 0.8 k/uL (0-1.0); Monocytes % (A) 9 %; Neutrophils # (A) 5.4 k/uL (1.3-7.7); Neutrophils % (A) 59 %; Platelet Count 357 k/uL (150-450); RBC 5.47 m/uL (3.80-5.40); RDW 15.9 % (11.5-15.5); WBC 9.2 k/uL (3.8-10.6)
[2020-02-26 14:38] LABS: Appearance,Urine Clear (Clear); Bilirubin,Urine Negative (Negative); Blood,Urine Negative (Negative); Color,Urine Light Yellow; Glucose,Urine (UA) Negative (Negative); Ketones,Urine Negative (Negative); Leukocyte Esterase,Urine Negative (Negative); Nitrite,Urine Negative (Negative); PH, Urine 7.5 (5.0-8.0); Protein,Urine Negative (Negative); Specific Gravity,Urine 1.007 (1.001-1.035); Urobilinogen,Urine <2.0 mg/dL (<2.0)
[2020-02-26 15:50] LABS: % Iron Saturation 18.84 (12.00-45.00); African American GFR (CKD) 58.9 (60.0-200.0); Albumin 4.4 g/dL (3.80-4.90); Albumin/Globulin Ratio 2.44 (1.60-3.17); Anion Gap 6.1 mmol/L (4.00-12.00); BUN/Creat Ratio 22.73 Ratio (12.00-20.00); Calcium 9.4 mg/dL (8.7-10.3); Carbon Dioxide 27.9 mmol/L (21.6-31.8); Chol/HDL Ratio 3.79; Globulin 1.8 g/dL (1.6-3.3); LDL Cholesterol,Calculated 68.2 mg/dL (0.0-131.0); Non-African American GFR(CKD) 50.8 (60.0-200.0); Potassium 5.3 mmol/L (3.5-5.5); Total Bilirubin 0.6 mg/dL (0.2-1.2); Total Protein 6.2 g/dL (6.2-8.2); VLDL Calculation 40.8 mg/dL (5.00-40.00)
[2020-02-26 15:57] LABS: T4, Free (Free Thyroxine) 1.1 ng/dL (0.80-1.80)
[2020-02-26 17:03] LABS: Folate, Serum 20.5 ng/mL
== END | disposition home or self-care (01) ==
LOC: LABWHC1 08:48
PROVIDERS: ATTEND Family Medicine
DX: R53.82 Chronic fatigue, unspecified (principal); E78.5 Hyperlipidemia, unspecified; I50.9 Heart failure, unspecified
CPT/HCPCS: 36415; 80053; 80061; 81003; 82306; 82550; 82607; 82746; 83540; 83550; 84439; 84443; 85025

== ENCOUNTER → 2020-12-18 | Outpatient (CLI) | payer MEDICARE ==
[2020-12-18 18:35] LABS: Chol/HDL Ratio 3.49 Ratio; HDL Cholesterol 39.3 mg/dL (40.00-60.00); LDL Cholesterol,Calculated 68.5 mg/dL (0.0-131.0); VLDL Calculation 29.2 mg/dL (5.00-40.00)
== END | disposition home or self-care (01) ==
LOC: LABWHC1 08:06
PROVIDERS: ATTEND Internal Medicine
DX: E78.2 Mixed hyperlipidemia (principal)
CPT/HCPCS: 36415; 80061; 84450; 84460

== ENCOUNTER → 2021-11-19 | Outpatient (CLI) | payer MEDICARE ==
[2021-11-19 22:55] LABS: HCT 34.4 % (37.2-46.3); HGB 10.7 g/dL (12.0-15.0); MCH 20.9 pg (27.0-32.0); MCHC 31.1 g/dL (32.0-37.0); MCV 67.1 fL (80.0-97.0); NRBC Per 100 WBC 0 /100 WBCS (0.0-0.0); Platelet Count 374 X 10*3/uL (140-440); RBC 5.13 X 10*6/uL (4.10-5.20); RDW 18.7 % (11.5-14.5); WBC 8.35 X 10*3/uL (4.50-10.00)
[2021-11-19 23:14] LABS: African American GFR (CKD) 65.2 (60.0-200.0); Anion Gap 9.4 mmol/L (10.00-18.00); Blood Urea Nitrogen 22.8 mg/dL (9.0-27.0); Carbon Dioxide 22.6 mmol/L (20.0-27.5); Non-African American GFR(CKD) 56.2 (60.0-200.0); Potassium 4.5 mmol/L (3.5-5.5)
== END | disposition home or self-care (01) ==
LOC: LABWHC1 15:28
PROVIDERS: ATTEND Internal Medicine
DX: Z01.812 Encounter for preprocedural laboratory examination (principal); I25.10 Atherosclerotic heart disease of native coronary artery without angina pectoris; R06.02 Shortness of breath
CPT/HCPCS: 36415; 80051; 82565; 84520; 85027

== ENCOUNTER 2021-11-25 07:15 | Day surgery (SDC) | payer MEDICARE ==
[2021-11-24 11:03] VITALS: BMI 38.3
[~2021-11-25 07:15] MED LIST changes: +ASPIRIN 325 MG TAB PO ONE; -ASPIRIN 325 MG TAB PO STA; +ATORVASTATIN 80 MG TAB PO ONE; -ATORVASTATIN 80 MG TAB PO STA; +HEPARIN SODIUM,PORCINE 10,000 UNIT in SODIUM CHLORIDE 0.9% 1,000 ML IRRIGATION PRN; +HEPARIN SODIUM,PORCINE 2,500 UNIT in SODIUM CHLORIDE 0.9% 250 ML IRRIGATION PRN; -SODIUM CHLORIDE 0.9% 1,000 ML in EMPTY BAG 1 BAG IV ONE; +SODIUM CHLORIDE 0.9% 1,000 ML in EMPTY BAG 1 BAG IV SCH
[2021-11-25 08:08] VITALS: TEMP 97.7
[2021-11-25] MEDS ORDERED: VERAPAMIL 2.5 MG/ML 2 ML AMP ONE (08:48)
[2021-11-25] MEDS ORDERED: fentaNYL (PF) 50 MCG/ML 2 ML AMP ONE (09:00)
[2021-11-25] MEDS ORDERED: MIDAZOLAM 2 MG/2 ML VIAL IV ONE ×2 (09:09)
[2021-11-25] MEDS ORDERED: fentaNYL (PF) 50 MCG/ML 2 ML AMP IV ONE (09:10)
[2021-11-25] MEDS ORDERED: LIDOCAINE 1% INJ 10MG/ML (30 ML VIAL-PF) SQ ONE (09:10)
[2021-11-25] MEDS ORDERED: VERAPAMIL SYRINGE (5 MG/10 ML) INTRAARTER ONE (09:14)
[2021-11-25] MEDS ORDERED: HEPARIN SODIUM 1,000 UN/ML (10ML VL) IV ONE (09:15)
[2021-11-25] MEDS ORDERED: IOPAMIDOL-370 125ML BTL INJ ONE (09:23)
--- NOTE | 2021-11-25 09:36 | P.CARDCATH ---
Description of Procedure: PROCEDURES PERFORMED: Left heart catheterization, bilateral coronary angiography INDICATION: Abnormal stress test, dyspnea on exertion, history of CAD CONSENT:I have discussed the risks, benefits and alternative therapies for the above-mentioned procedure and for both sedation/analgesia as well as necessary blood product administration, if indicated, as they pertain to this patient. The patient has indicated understanding and acceptance of the risks and procedures discussed. PROCEDURE: After the risks, benefits and alternatives of the above mentioned procedure explained in detail with the patient, informed consent was obtained. Patient was taken to the catheterization lab and prepped and draped in usual fashion. 1% lidocaine was used to anesthetize the right radial artery. A 6- [place] sheath was placed in the right radial artery using modified Seldinger technique. Left coronary angiography was performed with a 5-[place] JL 3.5 catheter and right coronary angiography was performed with a 5-[place] JR5 catheter in various views. A 5-[place] FR5 catheter was inserted into the left ventricle and pressure measurements were obtained. The right radial sheath was removed and a TR band was placed with hemostasis achieved. The patient tolerated the procedure well. Patient was transported back to the post catheterization holding area in stable condition. Conscious Sedation: Patient was monitored under the direct supervision of vision of myself for conscious sedation using Versed and fentanyl for a total duration of 12 minutes HEMODYNAMICS: Are: 144/77 LV: 141/5, LVEDP 17 SELECTIVE CORONARY ARTERIOGRAPHY: LEFT MAIN: The left main is a large caliber vessel which bifurcates into the LAD and circumflex. There is no significant stenosis. LEFT ANTERIOR DESCENDING CORONARY ARTERY: LAD is a large caliber vessel which wraps around to the apex. There is mild temporal percent proximal LAD stenosis and a mid LAD 30% stenosis. The LAD is very tortuous. LEFT CIRCUMFLEX CORONARY ARTERY: Left circumflex is a moderate caliber vessel with a mid to distal 40-50% circumflex stenosis. Otherwise there are mild zane vinh irregularities and the circumflex is tortuous. RIGHT CORONARY ARTERY: The right coronary artery is a large caliber vessel which gives off a PDA and PLV branch and is the dominant vessel. There is a patent mid LAD stent and a mid to distal RCA 50% stenosis. FINAL IMPRESSION: 1. Mild to moderate CAD as described above including 40-50% circumflex stenosis, 50% mid RCA stenosis, 30% mid LAD stenosis. 2. High normal left sided filling pressures PLAN: 1. Aggressive risk factor modification per most recent ACC/AHA guidelines. 2. CAD appears at most 50%. If the patient had a more classic angina may consider iFR however at this point continue with medical therapy 3. Follow-up in the office in 1-2 weeks.
[2021-11-25] MEDS ORDERED: HEPARIN SODIUM 1,000 UN/ML (10ML VL) ONE (09:46)
[2021-11-25 16:05] VITALS: BP 117/56; PULSE 66; RESP 16
== END 2021-11-25 13:42 | disposition home or self-care (01) ==
LOC: CATHCVL 07:15
PROVIDERS: ATTEND Internal Medicine
DX: I25.10 Atherosclerotic heart disease of native coronary artery without angina pectoris (principal); R06.02 Shortness of breath; I10 Essential (primary) hypertension; I48.0 Paroxysmal atrial fibrillation; E78.5 Hyperlipidemia, unspecified; I42.2 Other hypertrophic cardiomyopathy; I42.9 Cardiomyopathy, unspecified; R06.00 Dyspnea, unspecified; Z98.61 Coronary angioplasty status; F17.210 Nicotine dependence, cigarettes, uncomplicated
CPT/HCPCS: 93458; C1769; C1894; J2250; J2001; J3010; J1644; Q9967

== ENCOUNTER → 2023-03-04 | Outpatient (CLI) | payer MEDICARE ==
[2023-03-04 16:20] LABS: ALT 14 U/L (8-44); AST 12 U/L (13-35); Chol/HDL Ratio 4.07 Ratio; LDL Cholesterol,Calculated 76.9 mg/dL (0.0-131.0)
== END | disposition home or self-care (01) ==
LOC: LABWHC1 11:39
PROVIDERS: ATTEND Internal Medicine
DX: E78.2 Mixed hyperlipidemia (principal)
CPT/HCPCS: 36415; 80061; 84450; 84460